=== PATIENT | female | born 1990 | race Caucasian/White ===

== ENCOUNTER 2017-01-09 10:09 | Emergency (ER) | payer SELFPAY ==
[~2017-01-09 10:09] MED LIST: MUCINEX DM; [UNRECOGNIZED DRUG - OTHER]
--- NOTE | 2017-01-09 10:41 | ED.ADGEN ---
Past History Past Medical History: Anxiety, Asthma, Other Past Surgical History: Other Alcohol Use: Occasionally Drug Use: None Adult General Chief Complaint Chief Complaint Headache HPI HPI Patient is a 26 year old female who presents with headache. She's had this headache for 4 days, bitemporal, throbbing, not relieved with home ibuprofen. She's also had sinus drainage, mild cough, fevers at home. No neck stiffness reported. No known sick contacts. Her last menstrual cycle was one week ago. Patient sees Sola hilliard, has not seen her for the symptoms. Has not required hospitalization or ER visits for headaches in the past. Headache was gradual in onset. UCG was positive. This is when pt reports she had an elective in recent weeks. Review of Systems Review of Systems Constitutional: Reports fever, denies chills] Eyes: Denies change in visual acuity, redness, or eye pain [] HENT: REPorts nasal congestion Respiratory: Denies shortness of breath [] Cardiovascular: Denies chest pain GI: Denies abdominal pain, nausea, vomiting, bloody stools or diarrhea [] : Denies dysuria or hematuria [] Musculoskeletal: Denies back pain or joint pain [] Integument: Denies rash or skin lesions [] Neurologic: Denies focal weakness or sensory changes [] Current Medications Current Medications Current Medications Medications (Trade) Dose Ordered Sig/Freya Start Time Stop Time Status Last Admin Dose Admin Dextrose/Sodium Chloride (Iv D5% - NS) 1,000 ml @ 0 mls/hr 1X ONCE 01/09/17 11:00 01/09/17 11:03 DC 01/09/17 11:00 1,000 MLS/HR Diphenhydramine HCl (Benadryl) 25 mg 1X ONCE 01/09/17 11:30 01/09/17 11:31 DC Ketorolac Tromethamine (Toradol) 30 mg 1X ONCE 01/09/17 11:00 01/09/17 11:00 DC Metoclopramide HCl 10 mg 10 mg STK-MED ONCE 01/09/17 10:52 01/09/17 10:53 DC Metoclopramide HCl (Reglan) 10 mg 1X ONCE 01/09/17 11:30 01/09/17 11:31 DC 01/09/17 11:04 10 MG Prochlorperazine Edisylate (Compazine) 10 mg 1X ONCE 4/25/17 11:00 01/09/17 11:00 DC Sodium Chloride (Iv Sodium Chloride 0.9% 1,000ml) 1,000 ml @ 1,000 mls/hr 1X ONCE 01/09/17 11:00 01/09/17 11:00 DC Allergies Allergies Allergies Coded Allergies Type Severity Reaction Last Updated Verified albuterol Adverse Reaction Intermediate 10/06/15 Yes Physical Exam Physical Exam Constitutional: Well developed, well nourished, no acute distress, non-toxic appearance. [] HENT: Normocephalic, atraumatic, bilateral external ears normal, oropharynx moist, no oral exudates, nose normal. [] Eyes: PERRLA, EOMI, conjunctiva normal, no discharge. [] Neck: Normal range of motion, no tenderness, supple, no stridor. [] Cardiovascular:Heart rate tachycardia [place] with regular rhythm, no murmur [] Lungs & Thorax: Bilateral breath sounds clear to auscultation [] Abdomen: Bowel sounds normal, soft, no tenderness, no masses, no pulsatile masses. [] Skin: Warm, dry, no erythema, no rash. [] Back: No tenderness, no CVA tenderness. [] Extremities: No tenderness, no cyanosis, no clubbing, ROM intact, no edema. [] Neurologic: Alert and oriented X 3, normal motor function, normal sensory function, no focal deficits noted, cranial nerves II through XII intact Psychologic: Affect normal, judgement normal, mood normal. [] Current Patient Data Lab Results Laboratory Tests Test 01/09/17 10:30 01/09/17 10:40 01/09/17 10:44 01/09/17 10:59 Urine Collection Type Void Urine Color Yellow Urine Clarity Hazy Urine pH 6.0 Urine Specific [place] 1.020 Urine Protein 30 mg/dl (NEG-TRACE) Urine Glucose (UA) Negmg/dL (NEG) Urine Ketones (Stick) Negmg/dL (NEG) Urine Blood Large (NEG) Urine Nitrite Neg (NEG) Urine Bilirubin Neg (NEG) Urine Urobilinogen Dipstick 0.2mg/dL (0.2 mg/dL) Urine Leukocyte Esterase Mod (NEG) Urine RBC 3-5/HPF (0-2) Urine WBC 11-20/HPF (0-4) Urine Squamous Epithelial Cells Mod/LPF Urine Amorphous Sediment Present/HPF Urine Bacteria Few/HPF (0-FEW) Urine Mucus Mod/LPF Influenza Type A (Rapid) Negative (NEGATIVE) Influenza Type B (Rapid) Negative (NEGATIVE) POC Urine HCG, Qualitative hcg positive (Negative) White Blood Count 6.0x10^3/uL (4.0-11.0) Red Blood Count 4.68x10^6/uL (3.50-5.40) Hemoglobin 13.6g/dL (12.0-15.5) Hematocrit 41.4% (36.0-47.0) Mean Corpuscular Volume 88fL (79-100) Mean Corpuscular Hemoglobin 29pg (25-35) Mean Corpuscular Hemoglobin Concent 33g/dL (31-37) Red Cell Distribution Width 13.3% (11.5-14.5) Platelet Count 189x10^3/uL (140-400) Neutrophils (%) (Auto) 71% (31-73) Lymphocytes (%) (Auto) 20% (24-48) L Monocytes (%) (Auto) 7% (0-9) Eosinophils (%) (Auto) 1% (0-3) Basophils (%) (Auto) 1% (0-3) Neutrophils # (Auto) 4.3x10^3uL (1.8-7.7) Lymphocytes # (Auto) 1.2x10^3/uL (1.0-4.8) Monocytes # (Auto) 0.4x10^3/uL (0.0-1.1) Eosinophils # (Auto) 0.0x10^3/uL (0.0-0.7) Basophils # (Auto) 0.1x10^3/uL (0.0-0.2) Maternal Serum HCG Beta Subunit 21mIU/mL (0-6) H Sodium Level 140mmol/L (136-145) Potassium Level 3.7mmol/L (3.5-5.1) Chloride Level 106mmol/L (98-107) Carbon Dioxide Level 25mmol/L (21-32) Anion Gap 9 (6-14) Blood Urea Nitrogen 9mg/dL (7-20) Creatinine 0.9mg/dL (0.6-1.0) Estimated GFR (Cockcroft-Gault) 76.9 BUN/Creatinine Ratio 10 (6-20) Glucose Level 92mg/dL (70-99) Calcium Level 8.5mg/dL (8.5-10.1) Total Bilirubin 0.2mg/dL (0.2-1.0) Aspartate Amino Transferase (AST) 52U/L (15-37) H Alanine Aminotransferase (ALT) 70U/L (14-59) H Alkaline Phosphatase 85U/L (46-116) Total Protein 7.0g/dL (6.4-8.2) Albumin 3.3g/dL (3.4-5.0) L Albumin/Globulin Ratio 0.9 (1.0-1.7) L EKG EKG [] Radiology/Procedures Radiology/Procedures [] Course & Med Decision Making Course & Med Decision Making Pertinent Labs and Imaging studies reviewed. (See chart for details) IV ordered, IV fluids, Benadryl, Toradol and Compazine ordered. Headache resolved, HR in 70s, feeling much better. Expressed her hcg is low and likely declining from recent . She agrees and understand return precautions. Also informed her to f/u regarding slightly elevated liver enzymes to ensure this resolves or to investigate further. Final Impression Final Impression Headache.[] Problems: Dragon Disclaimer Dragon Disclaimer This electronic medical record was generated, in whole or in part, using a voice recognition dictation system. TATA BUSCH MD Jan 09, 2017 10:41
[2017-01-09] MEDS ORDERED: METOCLOPRAMIDE HCL 10 MG/2 ML VIAL. ONE (10:52)
[2017-01-09] MEDS ORDERED: IV DEXTROSE 5% - 0.9 % NACL 1,000 ML ONE (10:52)
[2017-01-09] MEDS ORDERED: IV DEXTROSE 5% - 0.9 % NACL 1,000 ML IV ONE (11:00)
[2017-01-09] MEDS ORDERED: IV NORMAL SALINE 1,000ML 1,000 ML IV ONE (11:00)
[2017-01-09] MEDS ORDERED: DIPHENHYDRAMINE 50 MG/ML VIAL IVP ONE ×2 (11:00→11:30)
[2017-01-09] MEDS ORDERED: PROCHLORPERAZINE 10 MG/2 ML VIAL. IV ONE (11:00)
[2017-01-09] MEDS ORDERED: KETOROLAC 30 MG/ML VIAL. IV ONE (11:00)
[2017-01-09 11:11] LABS: INFLUENZA A PATIENT NEGATIVE (NEGATIVE); INFLUENZA B PATIENT NEGATIVE (NEGATIVE)
[2017-01-09 11:15] LABS: BASO # 0.1 x10^3/uL (0.0-0.2); BASO % 1 % (0-3); EOS % 1 % (0-3); HEMATOCRIT 41.4 % (36.0-47.0); HEMOGLOBIN 13.6 g/dL (12.0-15.5); LYMPH # 1.2 x10^3/uL (1.0-4.8); LYMPH % 20 % (24-48); MEAN CORPUSCULAR HEMOGLOBIN 29 pg (25-35); MEAN CORPUSCULAR HGB CONC 33 g/dL (31-37); MEAN CORPUSCULAR VOLUME 88 fL (79-100); MONO # 0.4 x10^3/uL (0.0-1.1); MONO % 7 % (0-9); NEUT # 4.3 x10^3uL (1.8-7.7); NEUT % 71 % (31-73); PLATELET COUNT 189 x10^3/uL (140-400); RED BLOOD COUNT 4.68 x10^6/uL (3.50-5.40); RED CELL DISTRIBUTION WIDTH 13.3 % (11.5-14.5)
[2017-01-09 11:29] LABS: ALBUMIN 3.3 g/dL (3.4-5.0); ALBUMIN/GLOBULIN RATIO 0.9 (1.0-1.7); CALCIUM 8.5 mg/dL (8.5-10.1); CREATININE 0.9 mg/dL (0.6-1.0); GFR 76.9; POTASSIUM 3.7 mmol/L (3.5-5.1); TOTAL BILIRUBIN 0.2 mg/dL (0.2-1.0)
[2017-01-09 11:30] LABS: BACTERIA,URINE FEW /HPF (0-FEW); BILIRUBIN,URINE NEG (NEG); CLARITY,URINE HAZY; COLOR,URINE YELLOW; GLUCOSE,URINE NEG (NEG); NITRITE,URINE NEG (NEG); SQUAMOUS EPITHELIAL CELL,UR MOD /LPF; UROBILINOGEN,URINE 0.2 mg/dL (0.2 mg/dL)
[2017-01-09] MEDS ORDERED: METOCLOPRAMIDE HCL 10 MG/2 ML VIAL. IV ONE (11:30)
[2017-01-09 11:31] LABS: AMORPHOUS SEDIMENT,UR PRESENT /HPF
[2017-01-09 12:20] VITALS: BP 111/67
== END 2017-01-09 12:20 | disposition home or self-care (01) ==
LOC: ER 10:09
DX: R51 Headache (principal); R50.9 Fever, unspecified; R05 Cough; J45.909 Unspecified asthma, uncomplicated; Z33.1 Pregnant state, incidental; Z88.8 Allergy status to other drugs, medicaments and biological substances
CPT/HCPCS: 36415; 80053; 81001; 84702; 84703; 85027; 87086; 87804; 96361; 96374; 96375; 99284; J1200; J2765; J7042; 81025

== ENCOUNTER 2020-09-15 20:08 | Emergency (ER) | payer SELFPAY ==
[~2020-09-15] VITALS: Ht 147.3 cm; Wt 68.3 kg
--- NOTE | 2020-09-15 20:28 | PHYS DOC ---
Past History Past Medical History: Anxiety, Migraines Past Surgical History: Other Alcohol Use: Occasionally Drug Use: None Adult General Chief Complaint Chief Complaint: NAUSEA/VOMITING/DIARRHEA HPI HPI Patient is a 30-year-old female who presents for nausea vomit and diarrhea. Patient reports having generalized lightheadedness and fatigue for last 2 weeks. Was seen at outlying ER 3 days ago, had extensive work-up and was ultimately discharged home after unremarkable work-up. Patient was ultimately seen by her primary care physician yesterday, she had comprehensive history, physical examination and review of recent ER visit performed and there was concern for UTI so patient was put on Macrobid. Nonetheless, yesterday evening patient started experiencing generalized nausea and had decreased ability to eat without any focal abdominal pain. She reports suffering x1 episode of nonbloody nonbilious emesis and approximately x3 episodes of dry heaving ever since. Attempting p.o. intake makes worse, as such she has not been taking her p.o. medications for UTI. Patient also cites having " a few" episodes of diarrhea that have been nonbloody. Patient otherwise has been at [facility] recently, does admit she was restarted on her anxiety medication yesterday. States she has not had any fever, has had generalized chills and fatigue, no chest pain, no shortness of breath, no abdominal pain, no urinary symptoms or vaginal discharge. She works at local [employer] and has been exposed to general public, it is unknown if she has had any known COVID-19 contact Review of Systems Review of Systems Fourteen body systems of review of systems have been reviewed. See HPI for pertinent positives and negative responses, other lucero all other systems are negative, non-pertinent or non-contributory Allergies Allergies Allergies Coded Allergies Type Severity Reaction Last Updated Verified albuterol Adverse Reaction Intermediate 10/06/15 Yes Physical Exam Physical Exam Constitutional: Well developed, well nourished, no acute distress, non-toxic appearance. HENT: Normocephalic, atraumatic, bilateral external ears normal, oropharynx moist, no oral exudates, nose normal. Eyes: PERRLA, EOMI, conjunctiva normal, no discharge. Neck: Normal range of motion, no tenderness, supple, no stridor. Cardiovascular: Heart rate regular, sinus rhythm, no murmurs rubs or gallops Lungs & Thorax: Bilateral breath sounds clear to auscultation Abdomen: Bowel sounds normal, soft, no tenderness, no masses, no pulsatile masses. Nonsurgical abdomen, no peritoneal signs Skin: Warm, dry, no erythema, no rash. Back: No tenderness, no CVA tenderness. Extremities: No tenderness, no cyanosis, no clubbing, ROM intact, no edema. Neurologic: Alert and oriented X 3, grossly normal motor & sensory function, no focal deficits noted. Psychologic: Affect normal, judgement normal, mood normal. Current Patient Data Vital Signs Vital Signs Date Time Temp Pulse Resp B/P (MAP) Pulse Ox O2 Delivery O2 Flow Rate FiO2 09/15/20 20:22 97.9 110 16 150/75 (100) 98 Room Air Lab Results Laboratory Tests Test 09/15/20 20:38 White Blood Count 8.9 x10^3/uL Red Blood Count 5.12 x10^6/uL Hemoglobin 15.0 g/dL Hematocrit 45.8 % Mean Corpuscular Volume 89 fL Mean Corpuscular Hemoglobin 29 pg Mean Corpuscular Hemoglobin Concent 33 g/dL Red Cell Distribution Width 12.8 % Platelet Count 289 x10^3/uL Neutrophils (%) (Auto) 71 % Lymphocytes (%) (Auto) 21 % Monocytes (%) (Auto) 6 % Eosinophils (%) (Auto) 1 % Basophils (%) (Auto) 2 % Neutrophils # (Auto) 6.3 x10^3uL Lymphocytes # (Auto) 1.9 x10^3/uL Monocytes # (Auto) 0.5 x10^3/uL Eosinophils # (Auto) 0.1 x10^3/uL Basophils # (Auto) 0.1 x10^3/uL Sodium Level 141 mmol/L Potassium Level 3.8 mmol/L Chloride Level 105 mmol/L Carbon Dioxide Level 23 mmol/L Anion Gap 13 Blood Urea Nitrogen 14 mg/dL Creatinine 0.8 mg/dL Estimated GFR (Cockcroft-Gault) 85.4 Glucose Level 99 mg/dL Lactic Acid Level 1.0 mmol/L Calcium Level 9.5 mg/dL Current Medications Medications (Trade) Dose Ordered Sig/Freya Route PRN Reason Start Time Stop Time Status Last Admin Dose Admin Sodium Chloride 1,000 ml @ 1,000 mls/hr Q1H IV 09/15/20 20:45 12/30/20 21:44 DC 09/15/20 20:45 Ondansetron HCl (Zofran) 4 mg 1X ONCE IVP 09/15/20 20:45 09/15/20 20:46 DC 09/15/20 20:45 Lorazepam (Ativan Inj) 1 mg 1X ONCE IVP 09/15/20 21:15 09/15/20 21:17 DC 09/15/20 21:15 EKG EKG [] Radiology/Procedures Radiology/Procedures [] Heart Score HEART Score for Chest Pain: HEART Score for Chest Pain Response (Comments) Value History Slighlty/Non-Suspicious 0 Age < 45 0 Risk Factors No Risk Factors 0 Total 0 Risk Factors: Risk Factors: DM, Current or recent (<one month) smoker, HTN, HLP, family history of CAD, obesity. Risk Scores: Risk Factors: DM, Current or recent (<one month) smoker, HTN, HLP, family history of CAD, obesity. Course & Med Decision Making Course & Med Decision Making Discussed with the patient all findings and diagnostic testing. I discussed most likely diagnosis of known UTI on current antibiotic treatment and nonspecific nausea, vomit and diarrhea with concern for COVID-19 infection. Patient also suffering from anxiety, she had x1 anxiety/panic attack while in ER setting which responded with x1 mg IV Ativan. I believe her anxiety about recent health events is contributing to ongoing symptoms. Nonetheless, I disclosed no obvious infection, emergent nor surgical findings after ER work-up today. Patient on appropriate antibiotic therapy for known UTI, I feel she will respond to continued supportive care in outpatient setting with close outpatient follow-up when deemed safe as patient is currently pending COVID-19 test results. I did disclose this might be an acute presentation of more concerning pathology and so, if her symptoms worsen she should come back for repeat evaluation. Strict return precautions were also discussed at length with good understanding by patient. Patient voiced understanding and agreement with the p manuelito. Patient knows to come back for repeat evaluation if concerning signs or symptoms present prior to outpatient follow-up. Hemodynamically stable, ambulatory and well-appearing at time of disposition. Dragon Disclaimer Dragon Disclaimer This electronic medical record was generated, in whole or in part, using a voice recognition dictation system. Departure Departure: Impression: Primary Impression: Nausea vomiting and diarrhea Additional Impressions: Person under investigation for COVID-19 UTI (urinary tract infection) Anxiety Disposition: HOME SELF CARE/HOMELESS Condition: IMPROVED Referrals: JOSUÉ HOWELL (PCP) Patient Instructions: Nausea and Vomiting, Urinary Tract Infection Additional Instructions: You were seen for headache, nausea vomit diarrhea, previously diagnosed UTI, and possible infection with COVID-19. Your physical exam was reassuring. Your work-up was grossly unremarkable for any emergent and/or surgical abnormalities. We tested you for COVID-19 but this test does not come back for 1 to 2 days. In the meantime you need to quarantine yourself at home away from all other individuals, especially those who are elderly or have any other chronic health issues or an immunocompromised status. You should return to the ED if you develop worsening cough, shortness of breath, chest pain, or any other new or concerning symptoms. Alternate Tylenol and ibuprofen as needed for body aches and pain. If your test does come back positive you need to quarantine yourself for 10 days until symptom-free. You should make sure to drink plenty of fluids and get plenty of rest. Please call your primary care physician first thing tomorrow morning to discuss ER visit this evening and set up outpatient follow- up when safe to do so to discuss next steps in care. It was a pleasure to take care of you and I wish you a speedy recovery! Scripts Ondansetron Hcl (ZOFRAN) 4 Mg Tablet 1 TAB PO PRN Q6-8HRS for NAUSEA, #20 TAB Prov: ABRAHAN LOGAN DO 09/15/20 Problem Qualifiers ABRAHAN LOGAN DO Sep 15, 2020 20:28
[2020-09-15] MEDS ORDERED: ONDANSETRON PF 4 MG/2 ML VIAL. IVP ONE (20:45)
[2020-09-15] MEDS ORDERED: IV NORMAL SALINE 1,000ML 1,000 ML IV SCH (20:45)
[2020-09-15 20:57] LABS: BASO # 0.1 x10^3/uL (0.0-0.2); BASO % 2 % (0-3); EOS # 0.1 x10^3/uL (0.0-0.7); EOS % 1 % (0-3); HEMATOCRIT 45.8 % (36.0-47.0); LYMPH # 1.9 x10^3/uL (1.0-4.8); LYMPH % 21 % (24-48); MEAN CORPUSCULAR HEMOGLOBIN 29 pg (25-35); MEAN CORPUSCULAR HGB CONC 33 g/dL (31-37); MEAN CORPUSCULAR VOLUME 89 fL (79-100); MONO # 0.5 x10^3/uL (0.0-1.1); MONO % 6 % (0-9); NEUT # 6.3 x10^3uL (1.8-7.7); NEUT % 71 % (31-73); PLATELET COUNT 289 x10^3/uL (140-400); RED BLOOD COUNT 5.12 x10^6/uL (3.50-5.40); RED CELL DISTRIBUTION WIDTH 12.8 % (11.5-14.5); WHITE BLOOD COUNT 8.9 x10^3/uL (4.0-11.0)
[2020-09-15 21:06] LABS: CALCIUM 9.5 mg/dL (8.5-10.1); CREATININE 0.8 mg/dL (0.6-1.0); GFR 85.4; POTASSIUM 3.8 mmol/L (3.5-5.1)
[2020-09-15 22:25] VITALS: BP 136/85
[2020-09-15] MEDS ORDERED: ONDA4TAB7 PO (23:16)
[2020-09-16 03:06] LABS: COLOR,URINE YELLOW
[2020-09-16 03:07] LABS: BACTERIA,URINE 0 /HPF (0-FEW); BILIRUBIN,URINE NEG (NEG); CLARITY,URINE HAZY; GLUCOSE,URINE NEG (NEG); NITRITE,URINE NEG (NEG); SQUAMOUS EPITHELIAL CELL,UR MOD /LPF; UROBILINOGEN,URINE 0.2 mg/dL (0.2 mg/dL)
== END 2020-09-15 23:25 | disposition home or self-care (01) ==
LOC: ER 20:08
DX: N39.0 Urinary tract infection, site not specified (principal); R19.7 Diarrhea, unspecified; R11.2 Nausea with vomiting, unspecified; F41.9 Anxiety disorder, unspecified; G43.909 Migraine, unspecified, not intractable, without status migrainosus; Z20.828 Contact with and (suspected) exposure to other viral communicable diseases; Z88.8 Allergy status to other drugs, medicaments and biological substances
CPT/HCPCS: 36415; 80048; 81001; 83605; 85025; 87040; 87086; 96361; 96374; 96375; 99284; C9803; J2060; J2405; J7030; U0003

== ENCOUNTER 2020-09-16 20:34 | Observation (INO) | payer SELFPAY ==
[~2020-09-16] VITALS: Ht 144.8 cm; Wt 69.8 kg
[~2020-09-16 20:34] MED LIST changes: +ONDA4TAB7 PO
--- NOTE | 2020-09-16 21:16 | PHYS DOC ---
Past History Past Medical History: Anxiety, Migraines Past Surgical History: Tubal ligation Alcohol Use: None Drug Use: None Adult General Chief Complaint Chief Complaint: NAUSEA/VOMITING/DIARRHEA HPI HPI Patient is a 30-year-old female who presents for nausea vomiting diarrhea. She was seen and evaluated our ER yesterday evening by myself. She was diagnosed with a UTI 5 days ago at outlying ER but has been unable to take prescribed Macrobid medication due to ongoing nausea and inability to tolerate p.o. intake. She complains of ongoing generalized nausea and inability to tolerate p.o. intake. Since yesterday evening, patient has had x3 episodes of nonbloody nonbilious emesis in addition to x2 episodes of nonbloody diarrhea. Continues to deny fever, lightheadedness, dizziness, changes in vision, nuchal rigidity, chest pain, productive cough, changes in bladder or bowel function, no neurologic symptoms Review of Systems Review of Systems Fourteen body systems of review of systems have been reviewed. See HPI for pertinent positives and negative responses, other lucero all other systems are negative, non-pertinent or non-contributory Current Medications Current Medications Current Medications Medications (Trade) Dose Ordered Sig/Freya Start Time Stop Time Status Last Admin Dose Admin Ondansetron HCl (Zofran) 4 mg 1X ONCE 09/16/20 21:30 09/16/20 21:31 Sodium Chloride 1,000 ml @ 1,000 mls/hr Q1H 09/16/20 21:30 09/16/20 22:29 Allergies Allergies Allergies Coded Allergies Type Severity Reaction Last Updated Verified cephalexin Allergy Unknown 09/15/20 Yes albuterol Adverse Reaction Intermediate 10/06/15 Yes Physical Exam Physical Exam Constitutional: Well developed, well nourished, tearful and in moderate distress, non-toxic appearance. HENT: Normocephalic, atraumatic, bilateral external ears normal, oropharynx dry, no oral exudates, nose normal. Eyes: PERRLA, EOMI, conjunctiva normal, no discharge. Neck: Normal range of motion, no tenderness, supple, no stridor. No nuchal rigidity, negative Kernig and Brezinski signs Cardiovascular: Heart rate regular, sinus rhythm, no murmurs rubs or gallops Lungs & Thorax: Bilateral breath sounds clear to auscultation Abdomen: Bowel sounds normal, soft, generalized tenderness with palpation with voluntary guarding present, no rebound, no masses, no pulsatile masses. Nonsurgical abdomen, no peritoneal signs Skin: Warm, dry, no erythema, no rash. Back: No tenderness, no CVA tenderness. Extremities: No tenderness, no cyanosis, no clubbing, ROM intact, no edema. Neurologic: Alert and oriented X 3, grossly normal motor & sensory function, no focal deficits noted. Psychologic: Tearful affect, judgement normal, anxious mood Current Patient Data Vital Signs Vital Signs Date Time Temp Pulse Resp B/P (MAP) Pulse Ox O2 Delivery O2 Flow Rate FiO2 09/16/20 20:57 97.0 120 16 111/88 (96) 97 Lab Results Laboratory Tests Test 09/16/20 21:14 09/16/20 22:05 09/16/20 22:20 White Blood Count 8.2 x10^3/uL Red Blood Count 4.73 x10^6/uL Hemoglobin 13.9 g/dL Hematocrit 41.9 % Mean Corpuscular Volume 89 fL Mean Corpuscular Hemoglobin 29 pg Mean Corpuscular Hemoglobin Concent 33 g/dL Red Cell Distribution Width 12.5 % Platelet Count 267 x10^3/uL Neutrophils (%) (Auto) 67 % Lymphocytes (%) (Auto) 25 % Monocytes (%) (Auto) 6 % Eosinophils (%) (Auto) 1 % Basophils (%) (Auto) 1 % Neutrophils # (Auto) 5.5 x10^3uL Lymphocytes # (Auto) 2.0 x10^3/uL Monocytes # (Auto) 0.5 x10^3/uL Eosinophils # (Auto) 0.1 x10^3/uL Basophils # (Auto) 0.1 x10^3/uL Sodium Level 138 mmol/L Potassium Level 3.8 mmol/L Chloride Level 104 mmol/L Carbon Dioxide Level 22 mmol/L Anion Gap 12 Blood Urea Nitrogen 15 mg/dL Creatinine 0.7 mg/dL Estimated GFR (Cockcroft-Gault) 99.6 BUN/Creatinine Ratio 21 Glucose Level 90 mg/dL Calcium Level 8.4 mg/dL Total Bilirubin 0.4 mg/dL Aspartate Amino Transf (AST/SGOT) 14 U/L Alanine Aminotransferase (ALT/SGPT) 26 U/L Alkaline Phosphatase 71 U/L Creatine Kinase 61 U/L Total Protein 7.0 g/dL Albumin 3.7 g/dL Albumin/Globulin Ratio 1.1 Lipase 53 U/L Urine Collection Type Unknown Urine Color Yellow Urine Clarity Clear Urine pH 7.0 Urine Specific [place] 1.020 Urine Protein Neg Urine Glucose (UA) Neg mg/dL Urine Ketones (Stick) >=160 mg/dL Urine Blood Neg Urine Nitrite Neg Urine Bilirubin Neg Urine Urobilinogen Dipstick 2.0 mg/dL Urine Leukocyte Esterase Neg Urine RBC 3-5 /HPF Urine WBC 1-4 /HPF Urine Squamous Epithelial Cells Many /LPF Urine Bacteria Few /HPF Urine Opiates Screen Neg Urine Methadone Screen Neg Urine Barbiturates Neg Urine Phencyclidine Screen Neg Urine Amphetamine/Methamphetamine Neg Urine Benzodiazepines Screen Neg Urine Cocaine Screen Neg Urine Cannabinoids Screen Neg Urine Ethyl Alcohol Neg Bedside Urine HCG, Qualitative hcg negative Current Medications Medications (Trade) Dose Ordered Sig/Freya Route PRN Reason Start Time Stop Time Status Last Admin Dose Admin Sodium Chloride 1,000 ml @ 1,000 mls/hr Q1H IV 09/16/20 21:30 09/16/20 22:29 DC 09/16/20 21:27 Ondansetron HCl (Zofran) 4 mg 1X ONCE IVP 09/16/20 21:30 09/16/20 21:31 DC 09/16/20 21:27 Ketorolac Tromethamine (Toradol 15mg Vial) 15 mg 1X ONCE IVP 09/16/20 22:30 09/16/20 22:31 DC EKG EKG EKG ordered and interpreted by myself at 2123 hrs. as sinus rhythm at 103 bpm, unremarkable intervals, no axis deviation, no acute ischemic findings, no STEMI Radiology/Procedures Radiology/Procedures EXAM: CT Abdomen and Pelvis without IV contrast CLINICAL HISTORY: intractable nausea vomit and diarrhea COMPARISON: none TECHNIQUE: Helical CT of the abdomen and pelvis was performed without the administration of IV contrast. Axial, coronal and sagittal reformatted images were generated. ---PQRS compliance statement - One or more of the following individualized dose reduction techniques were utilized for this study: 1. Automated exposure control 2. Adjustment of the mA and/or kV according to patient size 3. Use of iterative reconstruction technique--- FINDINGS: Lack of intravenous contrast limits evaluation of solid organs, vasculature, and lymph nodes. Lower chest: Lung bases are clear. Abdomen and pelvis: Liver, spleen, adrenal glands, pancreas and gallbladder are unremarkable. No biliary ductal dilatation. No focal renal lesion. No hydronephrosis. No hydroureter. Bladder is unremarkable. Endometrium is distended, can be correlated with phase of menstrual cycle. Moderate colonic stool content is seen. No small or large bowel dilatation. No bowel obstruction. Appendix is normal. No abdominal or pelvic ascites. Trace fat-containing periumbilical hernia. Bones: No aggressive osseous lesion. IMPRESSION: 1. No bowel obstruction. 2. Moderate colonic stool content. 3. Endometrial distention can be correlated with phase of menstrual cycle. 4. No renal tract calculus. No hydronephrosis or hydroureter. Electronically signed by: Luis Manuel Ferguson MD (09/16/2020 10:45 PM) [facility] Heart Score HEART Score for Chest Pain: HEART Score for Chest Pain Response (Comments) Value History Slighlty/Non-Suspicious 0 Age < 45 0 Risk Factors No Risk Factors 0 Total 0 Risk Factors: Risk Factors: DM, Current or recent (<one month) smoker, HTN, HLP, family history of CAD, obesity. Risk Scores: Risk Factors: DM, Current or recent (<one month) smoker, HTN, HLP, family history of CAD, obesity. Course & Med Decision Making Course & Med Decision Making Pertinent Labs and Imaging studies reviewed. (See chart for details) I discussed there were no obvious emergent and/or surgical findings today. With that said, patient is still symptomatic, experiencing ongoing nausea and episodes of vomiting and diarrhea. She lives home alone, she fears for her ability to take care of himself. She has been unable to tolerate p.o. intake at home. She was previously diagnosed UTI, specific culture coming back E. coli, within the last 7 days that has received suboptimal p.o. antibiotic treatment due to nausea. Given that patient's condition did not significantly improve after ER intervention, joint decision made to admit I discussed case with on-call hospitalist who accepted patient under his care for observation for ongoing IV fluid rehydration and IV antibiotics for patient's previously diagnosed UTI at [facility] Patient updated on proposed plan of care and was amenable. All questions and concerns addressed prior to ER transport to [facility] for admission Magno Disclaimer Dragon Disclaimer This electronic medical record was generated, in whole or in part, using a voice recognition dictation system. Departure Departure: Impression: Primary Impression: Nausea vomiting and diarrhea Additional Impressions: Person under investigation for COVID-19 Urinary tract infection, E. coli Disposition: 09 ADMITTED INPT THIS HOSP Admitting Physician: Chito Joya Condition: STABLE Referrals: JOSUÉ HOWELL (PCP) Problem Qualifiers DESMONDABRAHAN Sep 16, 2020 21:16
[2020-09-16] MEDS ORDERED: IV NORMAL SALINE 1,000ML 1,000 ML IV SCH (21:30)
[2020-09-16] MEDS ORDERED: ONDANSETRON PF 4 MG/2 ML VIAL. IVP ONE (21:30)
--- NOTE | 2020-09-16 21:33 | EKG ---
[address] [address] Test Date: 2020-09-16 Test Time: 21:17:50 Pat Name: CASS ROGERS Department: Room: Gender: F Cane Feeder: ELIDIA : [id number] Requested By: ABRAHAN LOGAN Order Number: [id number] Reading MD: Carlton Altamirano Measurements Intervals [place] Rate: 103 P: 12 MN: 138 QRS: 44 QRSD: 80 T: 87 QT: 342 QTc: 450 Interpretive Statements SINUS TACHYCARDIA Electronically Signed On 09-21-2020 14:40:19 NATIONAL ACCOUNT REPRESENTATIVE by Carlton Altamirano
[2020-09-16 22:18] LABS: BASO # 0.1 x10^3/uL (0.0-0.2); BASO % 1 % (0-3); EOS # 0.1 x10^3/uL (0.0-0.7); EOS % 1 % (0-3); HEMATOCRIT 41.9 % (36.0-47.0); HEMOGLOBIN 13.9 g/dL (12.0-15.5); LYMPH % 25 % (24-48); MEAN CORPUSCULAR HEMOGLOBIN 29 pg (25-35); MEAN CORPUSCULAR HGB CONC 33 g/dL (31-37); MEAN CORPUSCULAR VOLUME 89 fL (79-100); MONO # 0.5 x10^3/uL (0.0-1.1); MONO % 6 % (0-9); NEUT # 5.5 x10^3uL (1.8-7.7); NEUT % 67 % (31-73); PLATELET COUNT 267 x10^3/uL (140-400); RED BLOOD COUNT 4.73 x10^6/uL (3.50-5.40); RED CELL DISTRIBUTION WIDTH 12.5 % (11.5-14.5); WHITE BLOOD COUNT 8.2 x10^3/uL (4.0-11.0)
[2020-09-16 22:21] LABS: CALCIUM 8.4 mg/dL (8.5-10.1); CREATININE 0.7 mg/dL (0.6-1.0); GFR 99.6; POTASSIUM 3.8 mmol/L (3.5-5.1)
[2020-09-16 22:28] LABS: ALBUMIN 3.7 g/dL (3.4-5.0); ALBUMIN/GLOBULIN RATIO 1.1 (1.0-1.7); TOTAL BILIRUBIN 0.4 mg/dL (0.2-1.0)
[2020-09-16] MEDS ORDERED: KETOROLAC 15 MG/ML VIAL. IVP ONE (22:30)
[2020-09-16 22:41] LABS: BARBITURATES NEG (NEG); BENZODIAZEPINES NEG (NEG); CANNABINOIDS NEG (NEG); COCAINE NEG (NEG); METHADONE NEG (NEG); OPIATES NEG (NEG); PHENCYCLIDINE NEG (NEG)
[2020-09-16 22:44] LABS: BILIRUBIN,URINE NEG (NEG); CLARITY,URINE CLEAR; COLOR,URINE YELLOW; GLUCOSE,URINE NEG (NEG)
[2020-09-16 22:45] LABS: BACTERIA,URINE FEW /HPF (0-FEW); NITRITE,URINE NEG (NEG); SQUAMOUS EPITHELIAL CELL,UR MANY /LPF
[2020-09-16 22:46] LABS: AMPHETAMINE/METHAMPHETAMINE NEG (NEG)
--- NOTE | 2020-09-16 22:47 | RAD ---
EXAM: CT Abdomen and Pelvis without IV contrast CLINICAL HISTORY: intractable nausea vomit and diarrhea COMPARISON: none TECHNIQUE: Helical CT of the abdomen and pelvis was performed without the administration of IV contra st. Axial, coronal and sagittal reformatted images were generated. ---PQRS compliance statement - One or more of the following individualized dose reduction techniques were utilized for this study: 1. Automated exposure control 2. Adjustment of the mA and/or kV according to patient size 3. Use of iterative reconstruction technique--- FINDINGS: Lack of intravenous contrast limits evaluation of solid organs, vasculature, and lymph nodes. Lower chest: Lung bases are clear. Abdomen and pelvis: Liver, spleen, adrenal glands, pancreas and gallbladder are unremarkable. No biliary ductal dilatatio n. No focal renal lesion. No hydronephrosis. No hydroureter. Bladder is unremarkable. Endometrium is distended, can be correlated with phase of menstrual cycle. Moderate colonic stool con tent is seen. No small or large bowel dilatation. No bowel obstruction. Appendix is normal. No abdominal or pelvic ascites. Trace fat-containing periumbilical hernia. Bones: No aggressive osseous lesion. IMPRESSION: 1. No bowel obstruction. 2. Moderate colonic stool content. 3. Endometrial distention can be correlated with phase of menstrual cycle. 4. No renal tract calculus. No hydronephrosis or hydroureter. Electronically signed by: Luis Manuel Ferguson MD (09/16/2020 10:45 PM) [facility]
[2020-09-16] MEDS ORDERED: CIPROFLOXACIN 400MG PREMIX 200 ML IV ONE (23:00)
--- NOTE | 2020-09-16 23:40 | NUR ---
The patient, CASS ROGERS, 30 y/o, F admitted by LOLA HARRIS MD, was given written information regarding hospital policies, unit procedures and contact persons. Valuables were checked and documented
[2020-09-17 00:22] VITALS: BP 122/64
[2020-09-17] MEDS ORDERED: ESCITALOPRAM OX20 MG PO (00:31)
[2020-09-17 06:34] VITALS: BP 98/57
[2020-09-17 10:52] VITALS: BP 95/66
[2020-09-17] MEDS ORDERED: ONDANSETRON PF 4 MG/2 ML VIAL. IVP PRN (14:45)
[2020-09-17 15:18] VITALS: BP 114/75
--- NOTE | 2020-09-17 17:01 | HP ---
ADMIT DATE: 09/16/2020 HISTORY OF PRESENT ILLNESS: The patient is a 30-year-old female patient who came to the Emergency Room complaining of nausea, vomiting and diarrhea and she was seen and evaluated and all her symptoms started last Sunday. She was seen apparently at [facility] and then was seen again on 09/15. She was diagnosed apparently with UTI 5 days ago at outlying Emergency Room, but has been unable to take prescribed Macrobid to medication due to an ongoing nausea and inability to tolerate p.o. intake. She complains of ongoing generalized nausea and inability to tolerate p.o. intake and since the day before admission, she has had 3 episodes of nonbloody, nonbilious vomiting and additional 2 episodes of nonbloody diarrhea. Continues to deny fever, lightheadedness, dizziness, changes in vision, nuchal rigidity, chest pain, productive cough, changes in bladder or bowel function or neurological symptoms. She was extensively evaluated in the Emergency Room and she has had lab work done that included lab work including a CBC and CMP. Her urinalysis was essentially unremarkable. Her urine test was negative. Her urine drug screen was negative and the patient was admitted. She did have a CT scan of the abdomen and pelvis, which showed that there is no bowel obstruction, moderate colonic stool content, endometrial distention, can be correlated with phase of menstrual cycle, no renal tract calculus, no hydronephrosis or hydroureter and the patient was admitted with recurrent bouts of nausea and vomiting. She was admitted as a person under investigation for COVID-19 and urinary tract infection with growth of E. coli, although ____ her urine culture done on 09/16/2020 showed that there is less than 10,000 colony forming units per mL of normal genitourinary cam, not indicative of infection on 09/17/2020, whether E. coli has been at another hospital, I do not have obviously access to it. PAST MEDICAL HISTORY: Significant for anxiety and migraine headache. PAST SURGICAL HISTORY: Significant for bilateral salpingectomy. FAMILY HISTORY: She has one sister, older and has thyroid problems. Does not know her father very well, he is about 57 years old. Mother is 55 and she seemingly healthy. SOCIAL HISTORY: She is , has 2 sons and 1 daughter. She smokes about 5 cigarettes a day, drinks alcohol very occasionally according to her, does not use any drugs. 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 REVIEW OF SYSTEMS: Again, she has nausea, vomiting and diarrhea, but there is no hematemesis, melena or hematochezia. In fact, she denied any dysuria, frequency or hematuria. PHYSICAL EXAMINATION: GENERAL: On arrival to the Emergency Room, she looked well and was clearly in no apparent respiratory distress. No pallor, jaundice or cyanosis. No lymphadenopathy, no thyromegaly. No jugular venous distention or limb edema. VITAL SIGNS: Her heart rate was 120, blood pressure was 111/88, temperature 97, respiratory rate was 16, and oxygen saturation was 97%. HEAD, EYES, EARS, NOSE AND THROAT: Normocephalic, atraumatic. NECK: Supple. HEART: Normal first and second heart sounds. No gallop, rub or murmur. CHEST: Clear to auscultation. No crepitation or rhonchi. ABDOMEN: Distended, soft, nontender. NEUROLOGIC: She is awake, alert, responding appropriately. All cranial nerves intact. EXTREMITIES: She moves extremities without difficulty. LABORATORY DATA: Her lab work on admission showed a white cell count of 8200, hemoglobin 14, hematocrit 42, MCV 89 and platelet count 267,000 with normal manual differential. Serum sodium was 138, potassium 3.8, chloride 104, bicarbonate 22, anion gap of 12, BUN 15, creatinine 0.7, estimated GFR was 99 mL per minute. Her glucose was 90, calcium was 8.4. Total bilirubin, AST, ALT, alkaline phosphatase were normal. Total protein 7, albumin was 3.7. ASSESSMENT AND PLAN: In summary, this is a 30-year-old female patient who presented with recurrent bouts of nausea, vomiting and diarrhea. She is hemodynamically stable. All her lab works are fine. Her urine culture at least done on the ____ Her CT scan of the abdomen was unremarkable. In fact, the CT scan showed the liver, spleen, adrenal glands, pancreas and gallbladder are unremarkable. No biliary ductal dilatation. No focal renal lesion. No hydronephrosis. No hydroureter. Bladder is unremarkable. Endometrium is distended and can be correlated with phase of menstrual cycle. Moderate colonic stool content is seen. No small or large bowel dilatation or bowel obstruction. Appendix is normal. No abdominal or pelvic abscess. Trace fat containing periumbilical hernia. The bone showed no aggressive osseous lesions. My plan is to continue with IV fluids and antiemetic. Unfortunately, her Celexa interacts with Zofran causing prolongation of QT interval and also ciprofloxacin can cause also prolongation of the QT interval. I will attempt to contact the Emergency Room of [facility] to see if we have actually culture there. LOLA HARRIS MD DR: SELWYN/hannah JOB#: [id number] / [id number]
[2020-09-17] MEDS ORDERED: LORazepam TOPICAL 0.5 MG/ML GEL TP PRN (17:45)
[2020-09-17] MEDS: LORazepam 0.5 MG TABLET PO PRN (17:53)
[2020-09-17] MEDS: IV NORMAL SALINE 1,000ML 1,000 ML IV SCH (17:53)
[2020-09-17 18:45] VITALS: BP 108/55
[2020-09-17 23:29] VITALS: BP 102/62
[2020-09-18] MEDS: LORazepam 0.5 MG TABLET PO PRN (03:06)
[2020-09-18] MEDS: IV NORMAL SALINE 1,000ML 1,000 ML IV SCH (03:08)
[2020-09-18 07:15] LABS: HEMATOCRIT 36.7 % (36.0-47.0); HEMOGLOBIN 12.1 g/dL (12.0-15.5); RED BLOOD COUNT 4.14 x10^6/uL (3.50-5.40); RED CELL DISTRIBUTION WIDTH 12.5 % (11.5-14.5); WHITE BLOOD COUNT 7.6 x10^3/uL (4.0-11.0)
[2020-09-18 07:30] LABS: ALBUMIN/GLOBULIN RATIO 1.1 (1.0-1.7); CALCIUM 7.5 mg/dL (8.5-10.1); CREATININE 0.6 mg/dL (0.6-1.0); POTASSIUM 3.6 mmol/L (3.5-5.1); TOTAL BILIRUBIN 0.3 mg/dL (0.2-1.0); TOTAL PROTEIN 5.8 g/dL (6.4-8.2)
[2020-09-18 07:39] VITALS: BP 112/56
--- NOTE | 2020-09-18 11:10 | NUR ---
WILL ARRIVED TO ROOM VIA EMS. PT IS STABLE AT TIME OF ADMISSION. VS OBTAINED, PATIENT IS OFFERED FOOD AND DRINK. PATIENT ID EDUCATED ON FALL RISK PREVENTION. DR HARRIS NOTIFIED OF ADMISSION. WILL CONTINUE TO MONITOR.
[2020-09-18 11:24] VITALS: BP 100/65
--- NOTE | 2020-09-18 13:26 | DS ---
DATE OF DISCHARGE: 09/16/2020 HOSPITAL COURSE: The patient was admitted with a complaint of dizziness, nausea, vomiting and diarrhea. We did also a swab here for COVID. Her coronavirus by PCR was not detectable and her lab works were all within acceptable range. I transpire that she has not been taking her Lexapro and most of her symptoms are probably the Lexapro withdrawal. We spoke to her mom and she told us that she is not taking her Lexapro regularly, although she admitted to that and she had her medication refilled again by her primary Sola Gao. PHYSICAL EXAMINATION: GENERAL: When I saw her this afternoon, she was resting slightly propped up in bed, in no apparent distress. No pallor, jaundice, cyanosis, or thyromegaly. No jugular venous distention or limb edema. VITAL SIGNS: Her heart rate was 82, blood pressure 100/65, temperature was 98.1, respiratory rate 20, and oxygen saturation was 100%. The rest of clinical exam is stable. LABORATORY DATA: Her white cell count was 7600, hemoglobin 12, hematocrit 36, MCV 89, platelet count 219,000. Her serum sodium was 141, potassium 3.9, chloride was 107, bicarbonate 26, anion gap of 8, BUN 10, creatinine 0.6, estimated GFR was 119 mL per minute. Her glucose was 79, calcium was 7.5. Total bilirubin, AST, ALT, alkaline phosphatase were normal. C-reactive protein was 0.7. Total protein 5.8, albumin 3 and TSH was 1.538. Her urinalysis was unremarkable. Urine culture was negative. Her urine test was negative. DISCHARGE MEDICATIONS: The patient was discharged home to continue on Lexapro 20 mg once a day, and ondansetron 4 mg every 6-8 hours as needed. FINAL DISCHARGE DIAGNOSIS: The coronavirus by PCR was negative, probably Lexapro withdrawal symptoms. LOLA HARRIS MD DR: SELWYN/hannah JOB#: [id number] / [id number]
--- NOTE | 2020-09-18 13:40 | NUR ---
PATIENT IS DISCHARGED HOME WITH SELF CARE. PATIENT IS STABLE AT TIME OF DISCHARGE. IV IS REMOVED BY THIS NURSE. PT IS GIVEN ALL DISCHARGE AND FOLLOW UP INSTRUCTIONS. PATIENT AMBULATED OFF OF UNIT ACCOMPANIED BY STAFF.
== END 2020-09-18 13:40 | disposition home or self-care (01) ==
LOC: ER 20:34 → 1 SOUTH 22:50 → ER 23:30
PROVIDERS: ADMIT Internal Medicine; ATTEND Internal Medicine
DX: N39.0 Urinary tract infection, site not specified (principal); Z20.828 Contact with and (suspected) exposure to other viral communicable diseases; B96.20 Unspecified Escherichia coli [E. coli] as the cause of diseases classified elsewhere; G43.909 Migraine, unspecified, not intractable, without status migrainosus; F41.9 Anxiety disorder, unspecified; F32.9 Major depressive disorder, single episode, unspecified; F17.210 Nicotine dependence, cigarettes, uncomplicated; Z98.51 Tubal ligation status; Z98.890 Other specified postprocedural states; Z79.899 Other long term (current) drug therapy
CPT/HCPCS: 36415; 74176; 80053; 80307; 81001; 81025; 82550; 83690; 84443; 85025; 85027; 86140; 93005; 96361; 96365; 96375; 99285; G0378; J0744; J1885; J2405; J7030; G0379

== ENCOUNTER 2021-11-06 19:58 | Emergency (ER) | payer SELFPAY ==
[~2021-11-06] VITALS: Ht 144.8 cm; Wt 77.2 kg
[~2021-11-06 19:58] MED LIST changes: +ESCITALOPRAM OX20 MG PO
[2021-11-06 20:29] LABS: BASO # 0.1 x10^3/uL (0.0-0.2); BASO % 1 % (0-3); EOS % 0 % (0-3); HEMATOCRIT 44.4 % (36.0-47.0); HEMOGLOBIN 14.6 g/dL (12.0-15.5); LYMPH % 16 % (24-48); MEAN CORPUSCULAR HEMOGLOBIN 30 pg (25-35); MEAN CORPUSCULAR HGB CONC 33 g/dL (31-37); MEAN CORPUSCULAR VOLUME 90 fL (79-100); MONO # 0.4 x10^3/uL (0.0-1.1); MONO % 3 % (0-9); NEUT # 9.9 x10^3uL (1.8-7.7); NEUT % 80 % (31-73); PLATELET COUNT 322 x10^3/uL (140-400); RED BLOOD COUNT 4.93 x10^6/uL (3.50-5.40); RED CELL DISTRIBUTION WIDTH 12.7 % (11.5-14.5); WHITE BLOOD COUNT 12.4 x10^3/uL (4.0-11.0)
[2021-11-06] MEDS ORDERED: IV NORMAL SALINE 1,000ML 1,000 ML IV ONE (20:30)
[2021-11-06 20:40] LABS: CALCIUM 8.8 mg/dL (8.5-10.1); CREATININE 0.8 mg/dL (0.6-1.0); GFR 84.8; POTASSIUM 3.6 mmol/L (3.5-5.1)
[2021-11-06 20:46] LABS: ALBUMIN 3.7 g/dL (3.4-5.0); ALBUMIN/GLOBULIN RATIO 1.1 (1.0-1.7); TOTAL BILIRUBIN 0.2 mg/dL (0.2-1.0); TOTAL PROTEIN 7.2 g/dL (6.4-8.2)
--- NOTE | 2021-11-06 20:56 | RAD ---
EXAM: CHEST ONE VIEW. HISTORY: Chest pain. COMPARISON: None. FINDINGS: A frontal view of the chest is obtained. There are no confluent infiltrates. There is no pneumothorax or pleural effusion. The heart is not en larged. IMPRESSION: 1. No confluent infiltrates. Electronically signed by: Esmer Smith MD (11/06/2021 8:54 PM) [facility]
--- NOTE | 2021-11-06 21:18 | EKG ---
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
--- NOTE | 2021-11-06 21:26 | PHYS DOC ---
Past History Past Medical History: No Pertinent History (BRYANT GARCÍA APRN) Past Surgical History: Tubal ligation (BRYANT GARCÍA APRN) Alcohol Use: None Drug Use: None (BRYANT GARCÍA APRN) General Adult EDM: Chief Complaint: CHEST PAIN HPI: HPI: Patient is a 31-year-old female who presents the emergency department with multiple complaints. Patient is reporting a nonproductive cough, shortness of breath and midsternal chest pain that started 2 days ago. Patient rates her pain 3 out of 10. There is no radiation of pain. She rates her pain 3 out of 10. No treatment prior to arrival. Pain is worse with cough and deep inspiration. Patient denies any nausea, vomiting, abdominal pain, fevers. Patient reports that she saw her primary care provider and they put her on amoxicillin and prednisone for influenza. Patient has a medical history. (BRYANT GARCÍA APRN) Review of Systems: Review of Systems: Constitutional: negative unless reported in HPI Eyes: negative unless reported in HPI HENT: negative unless reported in HPI Respiratory: negative unless reported in HPI Cardiovascular: negative unless reported in HPI GI: negative unless reported in HPI : negative unless reported in HPI Musculoskeletal: negative unless reported in HPI Integument: negative unless reported in HPI Neurologic: negative unless reported in HPI Endocrine: negative unless reported in HPI Lymphatic: negative unless reported in HPI Psychiatric: negative unless reported in HPI (BRYANT GARCÍA APRN) Current Medications: Current Meds: Current Medications Medications (Trade) Dose Ordered Sig/Freya Start Time Stop Time Status Last Admin Dose Admin Sodium Chloride 1,000 ml @ 1,000 mls/hr 1X ONCE 11/06/21 20:30 11/06/21 21:29 (BRYANT GARCÍA APRN) Allergies: Allergies: Allergies Coded Allergies Type Severity Reaction Last Updated Verified cephalexin Allergy Unknown 09/15/20 Yes albuterol Adverse Reaction Intermediate 10/06/15 Yes (BRYANT GARCÍA APRN) Physical Exam: PE: Constitutional: Well developed, well nourished, no acute distress, non-toxic appearance. [] HENT: Normocephalic, atraumatic, bilateral external ears normal, oropharynx moist, no oral exudates, nose normal. [] Eyes: PERRL, EOMI, conjunctiva normal, no discharge. [] Neck: Normal range of motion, no stridor Cardiovascular:Heart rate tachycardic rhythm, no murmur [] Lungs & Thorax: Bilateral breath sounds clear to auscultation [] Abdomen: Bowel sounds normal, soft, no tenderness, no masses, no pulsatile masses. [] Skin: Warm, dry, no erythema, no rash. [] Back: Motion Extremities: No tenderness, no cyanosis, no clubbing, ROM intact, no edema. [] Neurologic: Alert and oriented X 3, normal motor function, normal sensory function, no focal deficits noted. [] Psychologic: Affect normal, judgement normal, mood normal. [] (BRYANT GARCÍA APRN) Current Patient Data: Labs: Laboratory Tests Test 11/06/21 20:10 White Blood Count 12.4 x10^3/uL (4.0-11.0) H Red Blood Count 4.93 x10^6/uL (3.50-5.40) Hemoglobin 14.6 g/dL (12.0-15.5) Hematocrit 44.4 % (36.0-47.0) Mean Corpuscular Volume 90 fL (79-100) Mean Corpuscular Hemoglobin 30 pg (25-35) Mean Corpuscular Hemoglobin Concent 33 g/dL (31-37) Red Cell Distribution Width 12.7 % (11.5-14.5) Platelet Count 322 x10^3/uL (140-400) Neutrophils (%) (Auto) 80 % (31-73) H Lymphocytes (%) (Auto) 16 % (24-48) L Monocytes (%) (Auto) 3 % (0-9) Eosinophils (%) (Auto) 0 % (0-3) Basophils (%) (Auto) 1 % (0-3) Neutrophils # (Auto) 9.9 x10^3uL (1.8-7.7) H Lymphocytes # (Auto) 2.0 x10^3/uL (1.0-4.8) Monocytes # (Auto) 0.4 x10^3/uL (0.0-1.1) Eosinophils # (Auto) 0.0 x10^3/uL (0.0-0.7) Basophils # (Auto) 0.1 x10^3/uL (0.0-0.2) Vital Signs: Vital Signs Date Time Temp Pulse Resp B/P (MAP) Pulse Ox O2 Delivery O2 Flow Rate FiO2 11/06/21 20:07 98.4 119 26 132/75 (94) 99 Room Air (BRYANT GARCÍA APRN) EKG: EKG: EKG performed by ER staff at 2031 shows sinus rhythm rate of 95, QTC is 433, no STEMI read by Dr. Ramirez [] (BRYANT GARCÍA APRN) Radiology/Procedures: Radiology/Procedures: []PROCEDURE: PORTABLE CHEST 1V EXAM: CHEST ONE VIEW. HISTORY: Chest pain. COMPARISON: None. FINDINGS: A frontal view of the chest is obtained. There are no confluent infiltrates. There is no pneumothorax or pleural effusion. The heart is not enlarged. IMPRESSION: 1. No confluent infiltrates. Electronically signed by: Esmre Smith MD (11/06/2021 8:54 PM) [facility] DICTATED AND SIGNED BY: NOHEMY SMITH MD DATE: 11/06/212052 CC: CHELSEY RAMIREZ MD; BRYANT GARCÍA APRN; JOSUÉ HOWELL ~MTH0 0 PROCEDURE: CT ANGIOGRAPHY CHEST EXAM: CT ANGIOGRAPHY OF THE CHEST WITH AND WITHOUT CONTRAST. HISTORY: Chest pain, shortness of breath. TECHNIQUE: Computed tomographic angiography of the chest was performed before and after the intravenous administration of iodinated contrast. 3-D maximum intensity projections were also performed. One or more of the following individualized dose reduction techniques were utilized for this examination: 1. Automated exposure control. 2. Adjustment of the mA and/or kV according to patient size. 3. Use of iterative reconstruction technique. COMPARISON: None. FINDINGS: Images of the upper abdomen reveal no acute abnormality. Bone windows reveal no suspicious lesions. No pulmonary emboli are identified. There is no aortic dissection or aneurysm. There are no pathologically enlarged mediastinal or axillary lymph nodes. Soft tissue density in the anterior mediastinal fat is likely a thymic remnant or rebound thymic hyperplasia. There is no pleural or pericardial effusion. The heart is not enlarged. A focal groundglass infiltrate in the left upper lobe is likely postinflammatory. IMPRESSION: 1. No pulmonary embolism. Next were 2. Focal groundglass infiltrate in the upper lobes suggesting atypical pneumonia versus chronic scarring. Correlate for evidence of infection. Electronically signed by: Esmer Smith MD (11/06/2021 9:59 PM) [facility] DICTATED AND SIGNED BY: NOHEMY SMITH MD DATE: 11/06/212155 CC: CHELSEY RAMIREZ MD; BRYANT GARCÍA APRN; JOSUÉ HOWELL ~MTH0 0 (BRYANT GARCÍA APRN) Heart Score: C/O Chest Pain: Yes HEART Score for Chest Pain: HEART Score for Chest Pain Response (Comments) Value History Slighlty/Non-Suspicious 0 ECG Normal 0 Age < 45 0 Risk Factors No Risk Factors 0 Troponin < Normal Limit 0 Total 0 Risk Factors: Risk Factors: DM, Current or recent (<one month) smoker, HTN, HLP, family history of CAD, obesity. Risk Scores: Score 0 - 3: 2.5% MACE over next 6 weeks - Discharge Home Score 4 - 6: 20.3% MACE over next 6 weeks - Admit for Clinical Observation Score 7 - 10: 72.7% MACE over next 6 weeks - Early Invasive Strategies (BRYANT GARCÍA APRN) Course & Med Decision Making: Course & Med Decision Making Pertinent Labs and Imaging studies reviewed. (See chart for details) [] Patient presents to the emergency department with a nonproductive cough, shor tness of breath and midsternal chest pain. Work up in ER consisted of blood work with troponin and ddimer, EKG and chest x-ray. Patient had negative covid testing 2 days ago. CMP and troponin were negative. Patient does have mild leukocytosis with a white blood cell count of 12.4 likely viral cause. Ddimer mildly elevated at 0.71, CTA ordered of chest to r/o PE. UA unremarkable. Patient was treated with IV fluids and her heart rate has improved and is she is no longer tachycardic, hr 95bpm. Heart score is 0. CTA does not show PE but does show atypical pna-treated with zpack. Patient is advised to continue prednisone. I discussed with patient all findings and diagnostic testing as well as the need to follow-up with PCP for further evaluation and treatment or return to the ER if any new or worsening symptoms. Strict return precautions were also discussed at length. Patient voiced understanding and agreement with the plan. Patient is hemodynamically stable at the time of disposition. (BRYANT GARCÍA APRN) Dragon Disclaimer: Dragon Disclaimer: This electronic medical record was generated, in whole or in part, using a voice recognition dictation system. (BRYANT GARCÍA APRN) Departure Departure: Impression: Primary Impression: Pneumonia Qualified Codes: J18.9 - Pneumonia, unspecified organism Disposition: HOME / SELF CARE / HOMELESS Condition: GOOD Referrals: JOSUÉ HOWELL (PCP) Patient Instructions: Pneumonia, Adult Additional Instructions: You were seen in the ER for cough, shortness of breath and chest pain. Your imaging of your chest does not show any blood clots but you do have pneumonia which will be treated with azithromycin. Blood work unremarkable. Can continue taking your steroid as previously prescribed but discontinue the amoxicillin and start taking the new antibiotic. You can take tylenol and ibuprofen for pain at home. Follow up with your primary care provider on Sunday regarding your ER visit. Return to the emergency department if you develop worsening of your shortness of breath, chest pain, high fevers refractory to treatment, syncope, dizziness, intractable nausea/vomiting, or weakness. EMERGENCY DEPARTMENT GENERAL DISCHARGE INSTRUCTIONS Thank you for coming to [facility] (ED) today and trusting us with you care. We trust that you had a positivie experience in our Emergency Department. If you wish to speak to the department management, you may call the director at [phone]. YOUR FOLLOW UP INSTRUCTIONS ARE FOLLOWS: 1. Do you have a private Doctor? If you do not have a private doctor, please ask for a resource list of physicians or clinics that may be able to assist you with follow up care. 2. The Emergency Physician has interpreted your x-rays. The X-Ray specialist will also review them. If there is a change in the findings, you will be notified in 48 hours when at all possible. 3. A lab test or culture has been done, your results will be reviewed and you will be notified if you need a change in treatment. ADDITIONAL INSTRUCTIONS AND INFORMATION: 1. Your care today has been supervised by a physician who is specially trained in emergency care. Many problems require more than one evaluation for a complete diagnosis and treatment. We recommend that you schedule your follow up appointment as recommended to ensure complete treatment of you illness or injury. If you are unable to obtain follow up care and continue to have a problem, or if your condition worsens, we recommend that you return to the ED. 2. We are not able to safely determine your condition over the phone nor are we able to give sound medical advice over the phone. For these safety reasons, if you call for medical advice we will ask you to come to the ED for further evaluation. 3. If you have any questions regarding these discharge instructions please call the ED at [phone]. SAFETY INFORMATION: In the interest of safety, wellness, and injury prevention; we encourage you to wear your sealbelt, if you smoke; quite smoking, and we encourage family to use a protective helmet for bicycling and other sporting events that present an increased risk for head injury. IF YOUR SYMPTOMS WORSEN OR NEW SYMPTOMS DEVELOP, OR YOU HAVE CONCERNS ABOUT YOUR CONDITION; OR IF YOUR CONDITION WORSENS WHILE YOU ARE WAITING FOR YOUR FOLLOW UP APPOINTMENT; EITHER CONTACT YOUR PRIMARY CARE DOCTOR, THE PHYSICIAN WHOSE NAME AND NUMBER YOU WERE [place] [facility], OR RETURN TO THE ED IMMEDIATELY. Scripts Azithromycin (AZITHROMYCIN TABLET) 250 Mg Tablet 1 PKG PO UD for pneumonia for 5 Days, #6 TAB 0 Refills 2 the first day followed by 1 for days 2-5 Prov: BRYANT GARCÍA APRN 11/06/21 Magno Disclaimer This chart was dictated in whole or in part using Voice Recognition software in a busy, high-work load, and often noisy Emergency Department environment. It may contain unintended and wholly unrecognized errors or omissions. (CHELSEY RAMIREZ MD) Attending Signature Attending Signature I have participated in the care of this patient and I have reviewed and agree with all pertinent clinical information above including history, exam, and recommendations. (CHELSEY RAMIREZ MD) BRYANT GARCÍA APRN Nov 06, 2021 21:26 CHELSEY RAMIREZ MD Nov 07, 2021 03:53
[2021-11-06] MEDS ORDERED: IOHEXOL 350 MG/ML 100 ML VIAL. IV ONE (21:30)
[2021-11-06] MEDS ORDERED: BENZ-8 PO (21:48)
[2021-11-06 22:00] LABS: BACTERIA,URINE 0 /HPF (0-FEW); CLARITY,URINE CLEAR; COLOR,URINE YELLOW; GLUCOSE,URINE NEG (NEG); NITRITE,URINE NEG (NEG); RBC,URINE 0 /HPF (0-2); SQUAMOUS EPITHELIAL CELL,UR OCC /LPF; UROBILINOGEN,URINE 0.2 mg/dL (0.2 mg/dL); WBC,URINE 0 /HPF (0-4)
--- NOTE | 2021-11-06 22:02 | RAD ---
EXAM: CT ANGIOGRAPHY OF THE CHEST WITH AND WITHOUT CONTRAST. HISTORY: Chest pain, shortness of breath. TECHNIQUE: Computed tomographic angiography of the chest was performed before and after the intraveno us administration of iodinated contrast. 3-D maximum intensity projections were also performed. One o r more of the following individualized dose reduction techniques were utilized for this examination: 1. Automated exposure control. 2. Adjustment of the mA and/or kV according to patient size. 3. Use of iterative reconstruction technique. COMPARISON: None. FINDINGS: Images of the upper abdomen reveal no acute abnormality. Bone windows reveal no suspicious lesions. No pulmonary emboli are identified. There is no aortic dissection or aneurysm. There are no pathologically enlarged mediastinal or axillary lymph nodes. Soft tissue density in the anterior mediastinal fat is likely a thymic remnant or rebound thymic hyperplasia. There is no pleura l or pericardial effusion. The heart is not enlarged. A focal groundglass infiltrate in the left upper lobe is likely postinflammatory. IMPRESSION: 1. No pulmonary embolism. Next were 2. Focal groundglass infiltrate in the upper lobes suggesting atypical pneumonia versus chronic scarr ing. Correlate for evidence of infection. Electronically signed by: Esmer Smith MD (11/06/2021 9:59 PM) [facility]
[2021-11-06 22:04] VITALS: BP 109/71
[2021-11-06] MEDS ORDERED: AZIT250T6 PO (22:06)
== END 2021-11-06 22:20 | disposition home or self-care (01) ==
LOC: ER 19:58
DX: J18.9 Pneumonia, unspecified organism (principal); Z88.1 Allergy status to other antibiotic agents; Z88.8 Allergy status to other drugs, medicaments and biological substances
CPT/HCPCS: 36415; 71045; 71275; 80053; 81001; 84484; 85025; 85379; 93005; 96360; 99285; J7030; Q9967

== ENCOUNTER 2021-12-14 14:24 | Emergency (ER) | payer SELFPAY ==
[~2021-12-14] VITALS: Ht 144.8 cm; Wt 76.9 kg
[~2021-12-14 14:24] MED LIST changes: +AZIT250T6 PO; +BENZ-8 PO
[2021-12-14 14:42] VITALS: BP 153/98
[2021-12-14] MEDS ORDERED: DEXAMETHASONE 4 MG TABLET PO ONE (14:45)
[2021-12-14] MEDS ORDERED: LORA0.5T21 PO (15:00)
[2021-12-14] MEDS ORDERED: MECL-75 PO (15:00)
--- NOTE | 2021-12-14 15:01 | PHYS DOC ---
Past History Past Medical History: No Pertinent History Past Surgical History: Tubal ligation, Other Additional Past Surgical Histo: right breast lumpectomy Smoking: Quit Greater Than 1 Year Alcohol Use: None Drug Use: None General Adult EDM: Chief Complaint: FLU SYMPTOM HPI: HPI: 31-year-old female presents with 1 week history of flulike symptoms including body aches, headache, and nausea. Patient reports positive sick contacts with and kids who tested positive for influenza A. Patient reports she thinks she might be "dehydrated ". Patient reports has had dizziness that she describes as "room spinning sensation" that started today. Patient does report some nasal congestion. Reports some ear fullness. Denies trauma. Denies . Patient also reports history of "severe anxiety "which she also thinks might be contributing. Patient reports she has been prescribed hydroxyzine in the past but does not like the way it makes her feel. Review of Systems: Review of Systems: Constitutional: Denies fever or chills; reports body aches and generalized malaise Eyes: Denies redness or eye pain HENT: Reports nasal congestion and ear "fullness "; denies sore throat Respiratory: Denies cough or shortness of breath Cardiovascular: Denies chest pain or palpitations GI: Denies abdominal pain or vomiting; reports nausea : Denies dysuria or hematuria Musculoskeletal: Denies back pain or joint pain Integument: Denies rash or skin lesions Neurologic: Reports headache and dizziness; denies focal weakness or sensory changes Complete systems were reviewed and found to be within normal limits, except as documented in this note. Current Medications: Current Meds: Current Medications Medications (Trade) Dose Ordered Sig/[facility] Start Time Stop Time Status Last Admin Dose Admin Dexamethasone (Decadron) 10 mg 1X ONCE 12/14/21 14:45 12/14/21 14:46 DC Allergies: Allergies: Allergies Coded Allergies Type Severity Reaction Last Updated Verified cephalexin Allergy Unknown 09/15/20 Yes albuterol Adverse Reaction Intermediate 10/06/15 Yes Physical Exam: PE: Constitutional: Well developed, well nourished, no acute distress, non-toxic appearance, tearful HENT: Normocephalic, atraumatic, TMs clear bilaterally Eyes: PERRL, EOMI, conjunctiva normal, no discharge, no nystagmus appreciated Neck: Normal range of motion, no tenderness, supple, no meningeal signs Lungs & Thorax: No respiratory distress, equal chest rise and fall Abdomen: Soft, no tenderness Skin: Warm, dry, no erythema, no rash Extremities: No tenderness, ROM intact, no edema Neurologic: Alert and oriented X 3, normal motor function, normal sensory function, no focal deficits noted, cerebellar function intact Psychologic: Affect anxious, judgment normal Current Patient Data: Vital Signs: Vital Signs Date Time Temp Pulse Resp B/P (MAP) Pulse Ox O2 Delivery O2 Flow Rate FiO2 12/14/21 14:42 97.0 120 24 153/98 (116) 96 Room Air EKG: EKG: [] Radiology/Procedures: Radiology/Procedures: [] Heart Score: C/O Chest Pain: N/A Course & Med Decision Making: Course & Med Decision Making Patient presents with 1 week history of flulike symptoms with positive sick contacts at her home who recently tested positive for influenza A. Patient has been having similar symptoms but reports today started to have some room spinning sensation. Patient does have some nasal congestion. Patient neurologically intact without signs of nystagmus on exam. Concern for possible vertigo. Ordered influenza and Covid testing for confirmation which patient declined. Symptomatic steroid provided. Concern for anxiety component as patient anxious and became tearful during examination. Prescription for Ativan provided. We will also add Antivert for vertiginous symptoms. Patient stable for discharge with outpatient follow-up with PCP. Discussed findings and plan with patient, who acknowledges understanding and agreement. Magno Disclaimer: Magno Disclaimer: This electronic medical record was generated, in whole or in part, using a voice recognition dictation system. Departure Departure: Impression: Primary Impression: Vertigo Additional Impressions: Anxiety Exposure to influenza Disposition: HOME / SELF CARE / HOMELESS Condition: STABLE Referrals: JOSUÉ HOWELL (PCP) Patient Instructions: Anxiety and Panic Attacks, [id number], Influenza Facts, Influenza, Adult, [id number], Vertigo, [id number] Scripts Lorazepam (ATIVAN ) 0.5 Mg Tablet 0.5 MG PO PRN TID PRN for ANXIETY, #10 TAB Prov: CARMINA KUMAR DO 12/14/21 Meclizine Hcl (MECLIZINE HCL) 25 Mg Tablet 1 TAB PO PRN TID for dizziness, #20 TAB Prov: CARMINA KUMAR DO 12/14/21 CARMINA KUMAR DO Dec 14, 2021 15:01
[2021-12-16] MEDS ORDERED: CEPH500T PO (10:23)
== END 2021-12-14 15:14 | disposition home or self-care (01) ==
LOC: ER 14:24
DX: Z20.828 Contact with and (suspected) exposure to other viral communicable diseases (principal); F41.9 Anxiety disorder, unspecified; R42 Dizziness and giddiness; Z87.891 Personal history of nicotine dependence; Z88.1 Allergy status to other antibiotic agents; Z88.8 Allergy status to other drugs, medicaments and biological substances
CPT/HCPCS: 99283; J8540

== ENCOUNTER 2021-12-14 22:55 | Emergency (ER) | payer SELFPAY ==
[~2021-12-14] VITALS: Ht 144.8 cm; Wt 75.8 kg
[~2021-12-14 22:55] MED LIST changes: +LORA0.5T21 PO; +MECL-75 PO
--- NOTE | 2021-12-14 23:29 | PHYS DOC ---
Past History Past Medical History: No Pertinent History Past Surgical History: Tubal ligation, Other Additional Past Surgical Histo: right breast lumpectomy Alcohol Use: None Drug Use: None General Adult EDM: Chief Complaint: CHEST PAIN HPI: HPI: 31-year-old female presents with chest pain. The patient was seen in this emergency room earlier today. She tells me that she has had chest pain since this morning. It started after she woke up. She describes it as a dull ache of mild sensation. She is also had cold sweats, congestion, general ill feeling, decreased appetite. She takes anxiety medicine daily and has been taking it as prescribed. She denies any alcohol or drug use. She has no cardiac or lung history. The patient thinks she had influenza a few days ago. No fever today. Review of Systems: Review of Systems: Constitutional: Chills, body aches. Eyes: Denies change in visual acuity HENT: Nasal congestion Respiratory: Denies cough or shortness of breath Cardiovascular: Chest pain GI: Denies abdominal pain, nausea, vomiting, bloody stools or diarrhea : Denies dysuria Musculoskeletal: Denies back pain or joint pain Integument: Denies rash Neurologic: Denies headache, focal weakness or sensory changes Endocrine: Denies polyuria or polydipsia Lymphatic: Denies swollen glands Psychiatric: Denies depression or anxiety Allergies: Allergies: Allergies Coded Allergies Type Severity Reaction Last Updated Verified cephalexin Allergy Unknown 09/15/20 Yes albuterol Adverse Reaction Intermediate 10/06/15 Yes Physical Exam: PE: Constitutional: Well developed, well nourished, morbidly obese, no acute distress, non-toxic appearance. [] HENT: Normocephalic, atraumatic, bilateral external ears normal, oropharynx moist, no oral exudates, nose normal. [] Eyes: PERRLA, EOMI, conjunctiva normal, no discharge. [] Neck: Normal range of motion, no tenderness, supple, no stridor. [] Cardiovascular: Heart rate 94, regular rhythm, no murmur [] Lungs & Thorax: Bilateral breath sounds clear to auscultation [] Abdomen: Bowel sounds normal, soft, no tenderness, no masses, no pulsatile masses. [] Skin: Warm, dry, no erythema, no rash. [] Back: No tenderness, no CVA tenderness. [] Extremities: No tenderness, no cyanosis, no clubbing, ROM intact, no edema. [] Neurologic: Alert and oriented X 3, normal motor function, normal sensory function, no focal deficits noted. [] Psychologic: Affect normal, judgement normal, mood anxious. [] Current Patient Data: Vital Signs: Vital Signs Date Time Temp Pulse Resp B/P (MAP) Pulse Ox O2 Delivery O2 Flow Rate FiO2 12/14/21 22:58 98.2 104 18 126/70 (88) 95 Room Air EKG: EKG: Sinus rhythm, rate 94, normal axis, no ST elevation or depression. [] Radiology/Procedures: Radiology/Procedures: [] Heart Score: C/O Chest Pain: Yes HEART Score for Chest Pain: HEART Score for Chest Pain Response (Comments) Value History Slighlty/Non-Suspicious 0 ECG Normal 0 Age < 45 0 Risk Factors 1 or 2 Risk Factors 1 Troponin < Normal Limit 0 Total 1 Risk Factors: Risk Factors: DM, Current or recent (<one month) smoker, HTN, HLP, family history of CAD, obesity. Risk Scores: Score 0 - 3: 2.5% MACE over next 6 weeks - Discharge Home Score 4 - 6: 20.3% MACE over next 6 weeks - Admit for Clinical Observation Score 7 - 10: 72.7% MACE over next 6 weeks - Early Invasive Strategies Course & Med Decision Making: Course & Med Decision Making Pertinent Labs and Imaging studies reviewed. (See chart for details) The patient's EKG is unremarkable. Her labs are unremarkable. Her troponin is negative. Her chest x-ray is negative for acute findings. Her urinalysis is negative for infection. Her urine drug screen is negative. She is not . I suspect the patient is still having symptoms from her viral illness. I have advised supportive care such as rest, plenty fluids, and [id number] pain medication such as ibuprofen and Tylenol. She is stable for discharge at this time. [] Dragon Disclaimer: Kerion Disclaimer: This electronic medical record was generated, in whole or in part, using a voice recognition dictation system. Departure Departure: Impression: Primary Impression: Viral syndrome Disposition: HOME / SELF CARE / HOMELESS Condition: STABLE Referrals: JOSUÉ HOWELL (PCP) Patient Instructions: Viral Syndrome SHELLI TREVINO DO Dec 14, 2021 23:29
[2021-12-14 23:44] LABS: BASO % 1 % (0-3); EOS % 0 % (0-3); HEMATOCRIT 44.3 % (36.0-47.0); HEMOGLOBIN 14.7 g/dL (12.0-15.5); LYMPH # 0.5 x10^3/uL (1.0-4.8); LYMPH % 7 % (24-48); MEAN CORPUSCULAR HEMOGLOBIN 30 pg (25-35); MEAN CORPUSCULAR HGB CONC 33 g/dL (31-37); MEAN CORPUSCULAR VOLUME 90 fL (79-100); MONO # 0.1 x10^3/uL (0.0-1.1); MONO % 1 % (0-9); NEUT # 7.6 x10^3uL (1.8-7.7); NEUT % 92 % (31-73); PLATELET COUNT 246 x10^3/uL (140-400); RED BLOOD COUNT 4.95 x10^6/uL (3.50-5.40); RED CELL DISTRIBUTION WIDTH 12.7 % (11.5-14.5); WHITE BLOOD COUNT 8.3 x10^3/uL (4.0-11.0)
[2021-12-14 23:50] LABS: BARBITURATES NEG (NEG); BENZODIAZEPINES NEG (NEG); CANNABINOIDS NEG (NEG); COCAINE NEG (NEG); METHADONE NEG (NEG); OPIATES NEG (NEG); PHENCYCLIDINE NEG (NEG); U PREG PATIENT NEGATIVE (NEG)
[2021-12-14 23:55] LABS: AMPHETAMINE/METHAMPHETAMINE NEG (NEG)
[2021-12-15 00:03] LABS: CALCIUM 8.9 mg/dL (8.5-10.1); CREATININE 0.7 mg/dL (0.6-1.0); GFR 98.9; POTASSIUM 3.9 mmol/L (3.5-5.1)
[2021-12-15 00:04] LABS: CLARITY,URINE CLEAR; COLOR,URINE YELLOW; GLUCOSE,URINE 250 mg/dL (NEG); NITRITE,URINE NEG (NEG)
[2021-12-15 00:05] LABS: BACTERIA,URINE FEW /HPF (0-FEW); SQUAMOUS EPITHELIAL CELL,UR MOD /LPF
[2021-12-15 00:08] VITALS: BP 94/60
[2021-12-15 00:08] LABS: ALBUMIN 3.6 g/dL (3.4-5.0); TOTAL BILIRUBIN 0.2 mg/dL (0.2-1.0); TOTAL PROTEIN 7.1 g/dL (6.4-8.2)
--- NOTE | 2021-12-15 11:42 | EKG ---
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
--- NOTE | 2021-12-15 11:43 | RAD ---
XR CHEST 1V 12/14/2021 11:05 PM INDICATION: Chest pain COMPARISON: 11/06/2021 TECHNIQUE: Portable frontal view of the chest is provided. FINDINGS: The cardiomediastinal silhouette is within normal limits. Lungs are clear. There are no significant pleural effusions. There is no pulmonary vascular congestion. No pneumothora x. No suspicious osseous abnormality. IMPRESSION: There is no acute cardiopulmonary process. Electronically signed by: Radha Allen MD (12/14/2021 11:17 PM) [facility]
[2021-12-16] MEDS ORDERED: CEPH500T PO (10:23)
== END 2021-12-15 00:24 | disposition home or self-care (01) ==
LOC: ER 22:55
DX: B34.9 Viral infection, unspecified (principal); Z88.1 Allergy status to other antibiotic agents; Z88.8 Allergy status to other drugs, medicaments and biological substances
CPT/HCPCS: 36415; 71045; 80053; 80307; 81001; 81025; 84484; 85025; 87086; 93005; 99285

== ENCOUNTER 2021-12-15 17:04 | Emergency (ER) | payer SELFPAY ==
[~2021-12-15] VITALS: Ht 144.8 cm; Wt 75.8 kg
[2021-12-15] MEDS ORDERED: LORazepam 1 MG TABLET PO ONE ×2 (17:45→19:30)
--- NOTE | 2021-12-15 18:55 | PHYS DOC ---
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 Patient has been seen here numerous times in the last few days for same symptoms. Patient states that she does not know why she is so depressed and anxious. Patient currently takes Lexapro but states she does not think it is working. Patient does have a as needed order of Ativan but has not been taking it. Denies thoughts of harming herself or anyone else. History of depression and anxiety. (HETAL MADRIGAL APRN) Review of Systems: Review of Systems: ROS At least 10 ROS systems have been reviewed and are negative except as documented in the HPI. General: Negative except as outlined in HPI above. Skin: Negative except as outlined in HPI above. HEENT: Negative except as outlined in HPI above. Neck: Negative except as outlined in HPI above. Respiratory: Negative except as outlined in HPI above.. Cardiovascular: Negative except as outlined in HPI above. Abdomen: Negative except as outlined in HPI above. : Negative except as outlined in HPI above. Back/MSK: Negative except as outlined in HPI above. Neuro: Negative except as outlined in HPI above. Psych: Negative except as outlined in HPI above. (HETAL MADRIGAL APRN) Current Medications: Current Meds: Current Medications Medications (Trade) Dose Ordered Sig/[facility] Start Time Stop Time Status Last Admin Dose Admin Lorazepam (Ativan) 1 mg 1X ONCE 12/15/21 17:45 12/15/21 17:46 DC 12/15/21 17:45 1 MG (HETAL MADRIGAL APRN) Allergies: Allergies: Allergies Coded Allergies Type Severity Reaction Last Updated Verified cephalexin Allergy Unknown 09/15/20 Yes albuterol Adverse Reaction Intermediate 10/06/15 Yes (HETAL MADRIGAL APRN) Physical Exam: PE: Constitutional: Well developed, well nourished, no acute distress, non-toxic appearance. [] HENT: Normocephalic, atraumatic, bilateral external ears normal, oropharynx moist, no oral exudates, nose normal. [] Eyes: PERRLA, EOMI, conjunctiva normal, no discharge. [] Neck: Normal range of motion, no tenderness, supple, no stridor. [] Cardiovascular:Heart rate regular rhythm, no murmur [] Lungs & Thorax: Bilateral breath sounds clear to auscultation [] Abdomen: Bowel sounds normal, soft, no tenderness, no masses, no pulsatile masses. [] Skin: Warm, dry, no erythema, no rash. [] Back: No tenderness, no CVA tenderness. [] Extremities: No tenderness, no cyanosis, no clubbing, ROM intact, no edema. [] Neurologic: Alert and oriented X 3, normal motor function, normal sensory function, no focal deficits noted. [] Psychologic: Tearful, normal judgment, anxious mood (HETAL MADRIGAL APRN) Current Patient Data: Vital Signs: Vital Signs Date Time Temp Pulse Resp B/P (MAP) Pulse Ox O2 Delivery O2 Flow Rate FiO2 12/15/21 17:44 98.5 107 16 120/76 (91) 97 Room Air (HETAL MADRIGAL APRN) EKG: EKG: [] (HETAL MADRIGAL APRN) Radiology/Procedures: Radiology/Procedures: [] (HETAL MADRIGAL APRN) Heart Score: C/O Chest Pain: No Risk Factors: Risk Factors: DM, Current or recent (<one month) smoker, HTN, HLP, family history of CAD, obesity. Risk Scores: Score 0 - 3: 2.5% MACE over next 6 weeks - Discharge Home Score 4 - 6: 20.3% MACE over next 6 weeks - Admit for Clinical Observation Score 7 - 10: 72.7% MACE over next 6 weeks - Early Invasive Strategies (HETAL MADRIGAL APRN) Course & Med Decision Making: Course & Med Decision Making Pertinent Labs and Imaging studies reviewed. (See chart for details) [] 31-year-old male presents with anxiety and a panic attack. Patient's been seen numerous times in the last couple of days for the same symptoms. Patient given 1 of Ativan. Patient states that her symptoms have improved. Patient is currently taking Lexapro. Advised patient to call her PCP make a follow-up appointment tomorrow to possibly adjust her dosage. Patient denies homicidal or suicidal ideation. Patient is very tearful. Patient discharged home with instructions to follow-up with PCP in the morning. Advised patient she needs to pickle cutter her prescription from the pharmacy. (HETAL MADRIGAL APRN) Magno Disclaimer: Magno Disclaimer: This electronic medical record was generated, in whole or in part, using a voice recognition dictation system. (HETAL MADRIGAL APRN) Attending Co-Sign The patient was seen and interviewed as well as examined at the bedside. The chart was reviewed. The case was discussed. Agree with the plan of care. (SHELLI TREVINO DO) Departure Departure: Impression: Primary Impression: Anxiety Disposition: HOME / SELF CARE / HOMELESS Condition: STABLE Referrals: PCP,NO (PCP) Patient Instructions: Anxiety and Panic Attacks, [id number] Additional Instructions: You are seen in the emergency room for anxiety attack. Please call your PCP in the morning to discuss having your medications adjusted. Have your prescription for Ativan filled at the pharmacy and use as needed. Return to the emergency with worsening symptoms or concerns. EMERGENCY DEPARTMENT GENERAL DISCHARGE INSTRUCTIONS Thank you for coming to [facility] (ED) today and trusting us with you care. We trust that you had a positivie experience in our Emergency Department. If you wish to speak to the department management, you may call the director at [phone]. YOUR FOLLOW UP INSTRUCTIONS ARE FOLLOWS: 1. Do you have a private Doctor? If you do not have a private doctor, please ask for a resource list of physicians or clinics that may be able to assist you with follow up care. 2. The Emergency Physician has interpreted your x-rays. The X-Ray specialist will also review them. If there is a change in the findings, you will be notified in 48 hours when at all possible. 3. A lab test or culture has been done, your results will be reviewed and you w ill be notified if you need a change in treatment. ADDITIONAL INSTRUCTIONS AND INFORMATION: 1. Your care today has been supervised by a physician who is specially trained in emergency care. Many problems require more than one evaluation for a complete diagnosis and treatment. We recommend that you schedule your follow up appointment as recommended to ensure complete treatment of you illness or injury. If you are unable to obtain follow up care and continue to have a problem, or if your condition worsens, we recommend that you return to the ED. 2. We are not able to safely determine your condition over the phone nor are we able to give sound medical advice over the phone. For these safety reasons, if you call for medical advice we will ask you to come to the ED for further evaluation. 3. If you have any questions regarding these discharge instructions please call the ED at [phone]. SAFETY INFORMATION: In the interest of safety, wellness, and injury prevention; we encourage you to wear your sealbelt, if you smoke; quite smoking, and we encourage family to use a protective helmet for bicycling and other sporting events that present an increased risk for head injury. IF YOUR SYMPTOMS WORSEN OR NEW SYMPTOMS DEVELOP, OR YOU HAVE CONCERNS ABOUT YOUR CONDITION; OR IF YOUR CONDITION WORSENS WHILE YOU ARE WAITING FOR YOUR FOLLOW UP APPOINTMENT; EITHER CONTACT YOUR PRIMARY CARE DOCTOR, THE PHYSICIAN WHOSE NAME AND NUMBER YOU WERE GIVEN, OR RETURN TO THE ED IMMEDIATELY. HETAL MADRIGAL APRN Dec 15, 2021 18:55 SHELLI TREVINO DO Dec 16, 2021 05:26
[2021-12-15 19:26] VITALS: BP 120/75
[2021-12-16] MEDS ORDERED: CEPH500T PO (10:23)
== END 2021-12-15 19:20 | disposition home or self-care (01) ==
LOC: ER 17:04
DX: F41.9 Anxiety disorder, unspecified (principal); Z88.1 Allergy status to other antibiotic agents; Z88.8 Allergy status to other drugs, medicaments and biological substances
CPT/HCPCS: 99283

== ENCOUNTER → 2021-12-16 | Emergency (ER) | payer SELFPAY ==
[~2021-12-16] VITALS: Ht 144.8 cm; Wt 75.8 kg
[~2021-12-16] MED LIST changes: +ACETAMINOPHEN 500 MG TABLET PO ONE; +AMOXICILLIN/K CLAV 875/125MG TABLET. PO ONE; +CEPH500T PO; +IV NORMAL SALINE 1,000ML 1,000 ML IV ONE; +KETOROLAC 15 MG/ML VIAL. IVP ONE
--- NOTE | 2021-12-16 08:38 | PHYS DOC ---
Past History Past Medical History: No Pertinent History, Anxiety Past Surgical History: Tubal ligation, Other Additional Past Surgical Histo: right breast lumpectomy Alcohol Use: None Drug Use: None General Adult EDM: Chief Complaint: DIZZY/LIGHT HEADED HPI: HPI: Patient is a 31-year-old female coming in for fever, congestion, headache. Patient states that she has been congested for the past week to week and a half. States that her kids tested positive for influenza A over a week ago, she was not tested for similar symptoms. Denies any GI complaints. Patient states because of the congestion she has had decreased p.o. intake. Did not take anything for the fever prior to coming to the emergency department. Denies cough, ear pain, sore throat. Review of Systems: Review of Systems: All other systems within normal limits except for as noted in the HPI Allergies: Allergies: Allergies Coded Allergies Type Severity Reaction Last Updated Verified cephalexin Allergy Unknown 09/15/20 Yes albuterol Adverse Reaction Intermediate 10/06/15 Yes Physical Exam: PE: Constitutional: Well developed, well nourished, no acute distress, non-toxic appearance. [] HENT: Normocephalic, atraumatic, bilateral external ears normal, nose normal. Tenderness over maxillary sinuses [] Eyes: PERRLA, extraocular was intact conjunctiva normal, no discharge. [] Neck: No rigidity, supple, no stridor. [] Cardiovascular: Regular rate and rhythm, brisk cap refill [] Lungs & Thorax: Non labored symmetric respirations, no tachypnea or respiratory distress [] Abdomen: Soft, nondistended. Skin: Warm, dry, no erythema, no rash. [] Back: Unremarkable Extremities: No deformities, range of motion grossly intact, no lower extremity edema [] Neurologic: Alert and oriented X 3, no focal deficits noted. [] Psychologic: Affect normal, judgement normal, mood normal. [] Current Patient Data: Vital Signs: Vital Signs Date Time Temp Pulse Resp B/P (MAP) Pulse Ox O2 Delivery O2 Flow Rate FiO2 12/16/21 08:08 99.3 111 18 107/67 (80) 95 Room Air EKG: EKG: [] Radiology/Procedures: Radiology/Procedures: [] Heart Score: C/O Chest Pain: No Risk Factors: Risk Factors: DM, Current or recent (<one month) smoker, HTN, HLP, family history of CAD, obesity. Risk Scores: Score 0 - 3: 2.5% MACE over next 6 weeks - Discharge Home Score 4 - 6: 20.3% MACE over next 6 weeks - Admit for Clinical Observation Score 7 - 10: 72.7% MACE over next 6 weeks - Early Invasive Strategies Course & Med Decision Making: Course & Med Decision Making Pertinent Labs and Imaging studies reviewed. (See chart for details) [] Dragon Disclaimer: Dragon Disclaimer: This electronic medical record was generated, in whole or in part, using a voice recognition dictation system. Departure Departure: Impression: Primary Impression: Sinusitis Additional Impression: UTI (urinary tract infection) Disposition: HOME / SELF CARE / HOMELESS Condition: STABLE Referrals: PCPAUDI (PCP) Patient Instructions: Sinusitis Additional Instructions: Take Tylenol and ibuprofen as needed for pain and fever. Use [id number] decongestants such as Mucinex and saline flushes. Complete your course of an tibiotics as prescribed. Scripts Cephalexin (CEPHALEXIN) 500 Mg Tablet 1 TAB PO TID for antibioitc for 10 Days, #30 TAB Prov: FAVIOLA LUQUE MD 12/16/21 FAVIOLA LUQUE MD Dec 16, 2021 08:37
[2021-12-16 09:17] LABS: BASO # 0.1 x10^3/uL (0.0-0.2); BASO % 1 % (0-3); EOS % 0 % (0-3); HEMATOCRIT 42.7 % (36.0-47.0); HEMOGLOBIN 14.2 g/dL (12.0-15.5); LYMPH # 2.3 x10^3/uL (1.0-4.8); LYMPH % 21 % (24-48); MEAN CORPUSCULAR HEMOGLOBIN 30 pg (25-35); MEAN CORPUSCULAR HGB CONC 33 g/dL (31-37); MEAN CORPUSCULAR VOLUME 90 fL (79-100); MONO # 1.2 x10^3/uL (0.0-1.1); MONO % 11 % (0-9); NEUT # 7.2 x10^3uL (1.8-7.7); NEUT % 67 % (31-73); PLATELET COUNT 240 x10^3/uL (140-400); RED BLOOD COUNT 4.77 x10^6/uL (3.50-5.40); WHITE BLOOD COUNT 10.8 x10^3/uL (4.0-11.0)
[2021-12-16 09:23] LABS: CALCIUM 8.4 mg/dL (8.5-10.1); CREATININE 0.9 mg/dL (0.6-1.0); POTASSIUM 3.2 mmol/L (3.5-5.1)
[2021-12-16 09:27] LABS: CLARITY,URINE HAZY; COLOR,URINE AMBER
[2021-12-16 09:28] LABS: AMORPHOUS SEDIMENT,UR PRESENT /HPF; BACTERIA,URINE MOD /HPF (0-FEW); GLUCOSE,URINE NEG (NEG); HYALINE CASTS, URINE FEW /HPF; NITRITE,URINE NEG (NEG); RBC,URINE RARE /HPF (0-2); SQUAMOUS EPITHELIAL CELL,UR MOD /LPF; UROBILINOGEN,URINE 0.2 mg/dL (0.2 mg/dL); WBC,URINE TNTC /HPF (0-4)
[2021-12-16 09:29] LABS: ALBUMIN 3.2 g/dL (3.4-5.0); ALBUMIN/GLOBULIN RATIO 0.9 (1.0-1.7); TOTAL BILIRUBIN 0.2 mg/dL (0.2-1.0); TOTAL PROTEIN 6.7 g/dL (6.4-8.2)
[2021-12-16 18:27] VITALS: BP 96/59
== END | disposition home or self-care (01) ==
LOC: ER 07:57
DX: J32.9 Chronic sinusitis, unspecified (principal); N39.0 Urinary tract infection, site not specified; F41.9 Anxiety disorder, unspecified; Z98.51 Tubal ligation status; Z88.1 Allergy status to other antibiotic agents; Z88.8 Allergy status to other drugs, medicaments and biological substances
CPT/HCPCS: 36415; 80053; 81001; 85025; 87086; 96360; 96361; 99285; J7030

== ENCOUNTER 2021-12-17 17:32 | Emergency (ER) | payer SELFPAY ==
[~2021-12-17] VITALS: Ht 144.8 cm; Wt 76.1 kg
[~2021-12-17 17:32] MED LIST changes: -ACETAMINOPHEN 500 MG TABLET PO ONE; -AMOXICILLIN/K CLAV 875/125MG TABLET. PO ONE; -IV NORMAL SALINE 1,000ML 1,000 ML IV ONE; -KETOROLAC 15 MG/ML VIAL. IVP ONE
[2021-12-17 17:40] VITALS: BP 134/84
--- NOTE | 2021-12-17 21:09 | PHYS DOC ---
Past History Past Medical History: No Pertinent History, Anxiety (HETAL MADRIGAL APRN) Past Surgical History: Tubal ligation Additional Past Surgical Histo: right breast lumpectomy (HETAL MADRIGAL APRN) Alcohol Use: None Drug Use: None (HETAL MADRIGAL APRN) General Adult EDM: Chief Complaint: ANXIETY/PANIC ATTACK HPI: HPI: Patient is a 31-year-old female who came in with anxiety, depression, panic attack. Patient states that she is depressed and does not know why. Patient's been very tearful and unable to care for her children due to feeling so depressed. Patient has been seen multiple times this week in the emergency room for same complaint. Patient was prescribed Ativan to help with anxiety. Patient states that she has not been taking Ativan the way she is supposed to. No recent illness. No complaints of pain. Denies HI or SI. History of anxiety and depression. (HETAL MADRIGAL APRN) Review of Systems: Review of Systems: ROS At least 10 ROS systems have been reviewed and are negative except as documented in the HPI. General: Negative except as outlined in HPI above. Skin: Negative except as outlined in HPI above. HEENT: Negative except as outlined in HPI above. Neck: Negative except as outlined in HPI above. Respiratory: Negative except as outlined in HPI above.. Cardiovascular: Negative except as outlined in HPI above. Abdomen: Negative except as outlined in HPI above. : Negative except as outlined in HPI above. Back/MSK: Negative except as outlined in HPI above. Neuro: Negative except as outlined in HPI above. Psych: Negative except as outlined in HPI above. (HETAL MADRIGAL APRN) Allergies: Allergies: Allergies Coded Allergies Type Severity Reaction Last Updated Verified cephalexin Allergy Unknown 09/15/20 Yes albuterol Adverse Reaction Intermediate 10/06/15 Yes (HETAL MADRIGAL APRN) Physical Exam: PE: Constitutional: Well developed, well nourished, no acute distress, non-toxic appearance. HENT: bilateral external ears normal, oropharynx moist, no oral exudates, nose normal. Eyes: PERRLA, conjunctiva normal, no discharge. Neck: Normal range of motion, no tenderness, supple Cardiovascular:Heart rate regular rhythm, no murmur Lungs & Thorax: Bilateral breath sounds clear to auscultation Abdomen: Bowel sounds normal, soft, no tenderness, no masses, no pulsatile masses. Skin: Warm, dry, no erythema, no rash. Back: No tenderness, no CVA tenderness. Extremities: No tenderness, no cyanosis, no clubbing, ROM intact, no edema Neurologic: Alert and oriented X 3, normal motor function, normal sensory function, no focal deficits noted. Psychologic: Tearful, normal judgment, anxious mood (HETAL MADRIGAL APRN) Current Patient Data: Vital Signs: Vital Signs Date Time Temp Pulse Resp B/P (MAP) Pulse Ox O2 Delivery O2 Flow Rate FiO2 12/17/21 17:40 98.2 110 20 134/84 (101) 98 Room Air (HETAL MADRIGAL APRN) EKG: EKG: [] (HETAL MADRIGAL APRN) Radiology/Procedures: Radiology/Procedures: [] (HETAL MADRIGAL APRN) Heart Score: C/O Chest Pain: No Risk Factors: Risk Factors: DM, Current or recent (<one month) smoker, HTN, HLP, family history of CAD, obesity. Risk Scores: Score 0 - 3: 2.5% MACE over next 6 weeks - Discharge Home Score 4 - 6: 20.3% MACE over next 6 weeks - Admit for Clinical Observation Score 7 - 10: 72.7% MACE over next 6 weeks - Early Invasive Strategies (HETAL MADRIGAL APRN) Course & Med Decision Making: Course & Med Decision Making Pertinent Labs and Imaging studies reviewed. (See chart for details) [] 31-year-old female who came in with anxiety, depression, panic attack. Patient is very depressed and tearful. Patient has been seen multiple times this week for same complaints. Patient was fully worked up by Dr. Del Toro along with given Ativan to take at home. I had PET team consult with patient. Patient's denying SI or HI. Patient states that she feels much better since speaking with PAT team. Patient is laughing in the room and is more hopeful. Patient is going to follow-up with a therapist next week. Discussed discharge with patient. Patient states that she agrees with discharge plan and will follow up with her PCP on Sunday for medication changes. Return precautions at length. Patient verbalizes und erstanding of discharge instructions. (HETAL MADRIGAL APRN) Kerion Disclaimer: Dragon Disclaimer: This electronic medical record was generated, in whole or in part, using a voice recognition dictation system. (HETAL MADRIGAL APRN) Departure Departure: Impression: Primary Impression: Anxiety Disposition: HOME / SELF CARE / HOMELESS Condition: STABLE Referrals: PCP,AUDI (PCP) Patient Instructions: Anxiety and Panic Attacks Additional Instructions: You are seen emergency room for anxiety and depression. You met with the PAT team. You also have an appointment on Sunday to follow-up with your PCP. Make sure that you discuss medication changes with her. You also have a prescription for anxiety medication at home. Take as needed. Please return emergency room with worsening symptoms or concerns. EMERGENCY DEPARTMENT GENERAL DISCHARGE INSTRUCTIONS Thank you for coming to [facility] (ED) today and trusting us with you care. We trust that you had a positivie experience in our Emergency Department. If you wish to speak to the department management, you may call the director at [phone]. YOUR FOLLOW UP INSTRUCTIONS ARE FOLLOWS: 1. Do you have a private Doctor? If you do not have a private doctor, please ask for a resource list of physicians or clinics that may be able to assist you with follow up care. 2. The Emergency Physician has interpreted your x-rays. The X-Ray specialist will also review them. If there is a change in the findings, you will be notified in 48 hours when at all possible. 3. A lab test or culture has been done, your results will be reviewed and you will be notified if you need a change in treatment. ADDITIONAL INSTRUCTIONS AND INFORMATION: 1. Your care today has been supervised by a physician who is specially trained in emergency care. Many problems require more than one evaluation for a complete diagnosis and treatment. We recommend that you schedule your follow up appointment as recommended to ensure complete treatment of you illness or injury. If you are unable to obtain follow up care and continue to have a problem, or if your condition worsens, we recommend that you return to the ED. 2. We are not able to safely determine your condition over the phone nor are we able to give sound medical advice over the phone. For these safety reasons, if you call for medical advice we will ask you to come to the ED for further evaluation. 3. If you have any questions regarding these discharge instructions please call the ED at [phone]. SAFETY INFORMATION: In the interest of safety, wellness, and injury prevention; we encourage you to wear your sealbelt, if you smoke; quite smoking, and we encourage family to use a protective helmet for bicycling and other sporting events that present an increased risk for head injury. IF YOUR SYMPTOMS WORSEN OR NEW SYMPTOMS DEVELOP, OR YOU HAVE CONCERNS ABOUT YOUR CONDITION; OR IF YOUR CONDITION WORSENS WHILE YOU ARE WAITING FOR YOUR FOLLOW UP APPOINTMENT; EITHER CONTACT YOUR PRIMARY CARE DOCTOR, THE PHYSICIAN WHOSE NAME AND NUMBER YOU WERE GIVEN, OR RETURN TO THE ED IMMEDIATELY. Dragon Disclaimer This chart was dictated in whole or in part using Voice Recognition software in a busy, high-work load, and often noisy Emergency Department environment. It may contain unintended and wholly unrecognized errors or omissions. (CHELSEY FARMER MD) Dragon Disclaimer This chart was dictated in whole or in part using Voice Recognition software in a busy, high-work load, and often noisy Emergency Department environment. It may contain unintended and wholly unrecognized errors or omissions. (CHELSEY FARMER MD) Attending Signature Attending Signature I have participated in the care of this patient and I have reviewed and agree with all pertinent clinical information above including history, exam, and radha mmendations. (CHELSEY FARMER MD) HETAL MADRIGAL [employer]IE[employer] Dec 17, 2021 21:09 CHELSEY FARMER MD Dec 18, 2021 00:05
--- NOTE | 2021-12-18 18:46 | EKG ---
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
== END 2021-12-17 21:21 | disposition home or self-care (01) ==
LOC: ER 17:32
DX: F41.9 Anxiety disorder, unspecified (principal); F32.9 Major depressive disorder, single episode, unspecified; Z88.1 Allergy status to other antibiotic agents; Z88.8 Allergy status to other drugs, medicaments and biological substances
CPT/HCPCS: 93005; 99283

== ENCOUNTER 2021-12-27 17:18 | Emergency (ER) | payer SELFPAY ==
[~2021-12-27] VITALS: Ht 144.8 cm; Wt 76.1 kg
--- NOTE | 2021-12-27 19:53 | PHYS DOC ---
Past History Past Medical History: No Pertinent History, Anxiety Past Surgical History: Tubal ligation Additional Past Surgical Histo: right breast lumpectomy Alcohol Use: None Drug Use: None General Adult EDM: Chief Complaint: Neck Pain HPI: HPI: ".. I having severe neck pain and spasm... s" Patient is a 31 year old female who presents with above hx and complaints severe neck spasms. Patient denies any recent injury. Has had previous episodes of torticollis. Patient denies any fever chills. No recent travel. No specific ill contacts. No histamine suppression. Patient does have findings of paracervical muscle spasm particularly in the upper trapezius area. Does have limited range of motion due to the severe pain. Does appear to have some this cervical neuropathy.. Patient denies any problems breathing using upper arms and walking. Pt. follows with Amber Medina as primary. Review of Systems: Review of Systems: Constitutional: Denies fever or chills Eyes: Denies change in visual acuity HENT: Denies nasal congestion or sore throat. Complains of severe muscle spasm of the neck Respiratory: Denies cough or shortness of breath Cardiovascular: Denies chest pain or edema GI: Denies abdominal pain, nausea, vomiting, bloody stools or diarrhea : Denies dysuria Musculoskeletal: Denies back pain or joint pain Integument: Denies rash Neurologic: Denies headache, focal weakness or sensory changes Endocrine: Denies polyuria or polydipsia Lymphatic: Denies swollen glands Psychiatric: Denies depression or anxiety Family History: Family History: Noncontributory the presentation Current Medications: Current Meds: See nursing for home meds Allergies: Allergies: Allergies Coded Allergies Type Severity Reaction Last Updated Verified cephalexin Allergy Unknown 09/15/20 Yes albuterol Adverse Reaction Intermediate 10/06/15 Yes Physical Exam: PE: Constitutional: Well developed, well nourished, in acute distress, non-toxic appearance. [] HENT: Normocephalic, atraumatic, bilateral external ears normal, oropharynx moist, no oral exudates, nose normal. [] Eyes: PERRLA, EOMI, conjunctiva normal, no discharge. [] Neck: Limited range of motion, marked muscle spasm and tenderness of upper cervical and trapezius tenderness, , no stridor. [] No bruits Cardiovascular:Heart rate regular rhythm, no murmur [] Lungs & Thorax: Bilateral breath sounds equal auscultation [] Abdomen: Bowel sounds normal, soft, no tenderness, no masses, no pulsatile mass es. [] Skin: Warm, dry, no erythema, no rash. [] Back: No tenderness, no CVA tenderness. [] Extremities: No tenderness, no cyanosis, no clubbing, ROM intact, no edema. [] DTRs +2 patella brachial. Machine Ii Engraver equal. No drift. Ambulatory. [id number]. Neurologic: Alert and oriented X 3, normal motor function, normal sensory function, no focal deficits noted. [] Psychologic: Affect anxious, judgement normal, mood normal. [] Current Patient Data: Labs: Laboratory Tests Test 12/27/21 18:55 POC Urine HCG, Qualitative hcg negative (Negative) Vital Signs: Vital Signs Date Time Temp Pulse Resp B/P (MAP) Pulse Ox O2 Delivery O2 Flow Rate FiO2 12/27/21 18:32 98.0 99 16 138/83 (101) 95 Room Air EKG: EKG: [] Radiology/Procedures: Radiology/Procedures: [][place] [address] IMAGING REPORT Signed PATIENT: CASS ROGRES ACCOUNT: [id number] : 1990 LOCATION: ER AGE: 31 SEX: F EXAM STATUS: REG ER ORD. PHYSICIAN: CHELSEY FARMER MD REASON: Severe episoidic torticolis, dizziness, neck tightness, no trauma PROCEDURE: CT CERVICAL SPINE WO CONTRAST Exam: CT cervical spine without contrast INDICATION: Severe episodic torticollis TECHNIQUE: Sequential axial images through the cervical spine obtained without IV contrast. Sagittal and coronal reformatted images were reconstructed from the axial data and reviewed. Exposure: One or more of the following in the visualized dose reduction techniques were utilized for this examination: 1. Automated exposure control 2. Adjustment of the MA and/or KV according to patient size 3. Use of iterative of reconstructive technique Comparisons: None FINDINGS: Visualized intracranial structures are unremarkable. Straightening of the cervical spine which may positional. Vertebral body heights are well-maintained. Fracture to the cervical spine is not identified. Mild degenerative disc disease greatest at C5-C6 and C6-C7. Visualized paraspinal soft tissues are unremarkable. IMPRESSION: 1. Negative CT C-spine for acute traumatic injury. 2. Mild spondylotic change in the mid to lower cervical spine without significant neural foraminal or spinal canal stenosis. Electronically signed by: Pham Dyer MD (12/27/2021 8:39 PM) [facility] DICTATED AND SIGNED BY: PHAM DYER MD DATE: 12/27/212034 CC: AMBER MEDINA; CHELSEY FARMER MD ~ Heart Score: C/O Chest Pain: N/A Risk Factors: Risk Factors: DM, Current or recent (<one month) smoker, HTN, HLP, family histo ry of CAD, obesity. Risk Scores: Score 0 - 3: 2.5% MACE over next 6 weeks - Discharge Home Score 4 - 6: 20.3% MACE over next 6 weeks - Admit for Clinical Observation Score 7 - 10: 72.7% MACE over next 6 weeks - Early Invasive Strategies Course & Med Decision Making: Course & Med Decision Making Pertinent Labs and Imaging studies reviewed. (See chart for details) Patient use ice packs as needed. For the next 2 or 3 days. May advance to moist heat if no reinjury. Gentle massage. Take Tylenol and ibuprofen for discomfort. Take Flexeril 10 mg up to 3 times a day for muscle spasms. Recommend follow-up if continued problems may need MRI to fully evaluate neural stenosis or impingement. Return if any concerns. Follow-up with primary care. May be candidate for topical pain patches or localized blocks/steroid injections if no relief with more conservative measures. Return for any concerns. Impression: 1. Torticollis/neck spasms 2. Cervical degenerative changes particularly at C5 -6, and 67 3. Cervical neuropathy [] Dragon Disclaimer: Dragon Disclaimer: This electronic medical record was generated, in whole or in part, using a voice recognition dictation system. Departure Departure: Referrals: AMBER MEDINA (PCP) Scripts Cyclobenzaprine Hcl (CYCLOBENZAPRINE HCL) 10 Mg Tablet 10 MG PO tidprn for neck spasms, #30 TAB Prov: CHELSEY FARMER MD 12/27/21 Dragon Disclaimer This chart was dictated in whole or in part using Voice Recognition software in a busy, high-work load, and often noisy Emergency Department environment. It may contain unintended and wholly unrecognized errors or omissions. CHELSEY FARMER MD Dec 27, 2021 19:53
--- NOTE | 2021-12-27 20:42 | RAD ---
Exam: CT cervical spine without contrast INDICATION: Severe episodic torticollis TECHNIQUE: Sequential axial images through the cervical spine obtained without IV contrast. Sagittal and coronal reformatted images were reconstructed from the axial data and reviewed. Exposure: One or more of the following in the visualized dose reduction techniques were utilized for this examination: 1. Automated exposure control 2. Adjustment of the MA and/or KV according to patient size 3. Use of iterative of reconstructive technique Comparisons: None FINDINGS: Visualized intracranial structures are unremarkable. Straightening of the cervical spine which may positional. Vertebral body heights are well-maintained. Fracture to the cervical spine is not identified. Mild degenerative disc disease greatest at C5-C6 and C6-C7. Visualized paraspinal soft tissues are unremarkable. IMPRESSION: 1. Negative CT C-spine for acute traumatic injury. 2. Mild spondylotic change in the mid to lower cervical spine without significant neural foraminal o r spinal canal stenosis. Electronically signed by: Pham Jaramillo MD (12/27/2021 8:39 PM) [facility]
[2021-12-27 21:18] LABS: BACTERIA,URINE FEW /HPF (0-FEW); CLARITY,URINE CLEAR; COLOR,URINE YELLOW; GLUCOSE,URINE NEG (NEG); NITRITE,URINE NEG (NEG); SQUAMOUS EPITHELIAL CELL,UR FEW /LPF; UROBILINOGEN,URINE 0.2 mg/dL (0.2 mg/dL)
[2021-12-27] MEDS ORDERED: CYCL10TA19 PO (23:13)
[2021-12-27 23:39] VITALS: BP 124/86
== END 2021-12-27 23:39 | disposition home or self-care (01) ==
LOC: ER 17:18
DX: G54.2 Cervical root disorders, not elsewhere classified (principal); Z88.1 Allergy status to other antibiotic agents; Z88.8 Allergy status to other drugs, medicaments and biological substances
CPT/HCPCS: 72125; 81001; 81025; 99284

== ENCOUNTER 2022-01-08 19:00 | Emergency (ER) | payer SELFPAY ==
[~2022-01-08 19:00] MED LIST changes: +CYCL10TA19 PO
== END 2022-01-08 19:45 | disposition left against medical advice (07) ==
LOC: ER 19:00
DX: R10.9 Unspecified abdominal pain (principal); Z53.21 Procedure and treatment not carried out due to patient leaving prior to being seen by health care provider